=== PATIENT | female | born 1955 | race Caucasian/White ===

== ENCOUNTER → 2016-08-21 | Outpatient (CLI) | payer BC ==
[~2016-08-21] MED LIST: BREO1INH PO; CENTTAB47 PO; CINN500T PO; COUM2.5T11 PO; FLAX10002 PO; LEVA500T PO; LYRI75CA PO; PERC5TAB6 PO; TYLE325T5 PO; VITA100041 PO; tumeric
--- NOTE | 2016-08-21 09:49 | REPMRS ---
Patient History The patient states she had a clinical breast exam in 08/2016. Patient is postmenopausal and had first child at age 31. Family history of prostate cancer in father at age 50 or over. 2 benign cyst aspirations of the left breast, August 09, 2005. Benign core biopsy of the left breast, August 09, 2005. Digital Woman Screen Mammo: August 21, 2016 - Exam #: [id number] Bilateral CC and MLO view(s) were taken. Technologist: Trixie Cosby, Technologist Prior study comparison: October 10, 2014, digital woman screen mammo performed at [facility]. August 24, 2013, digital woman screen mammo performed at [facility]. FINDINGS: There are scattered fibroglandular densities. There has been no change in the appearance of the mammogram from the prior studies. There is a mild amount of residual fibroglandular tissue which is fairly symmetric. There is no interval development of dominant mass, architectural distortion, or clustered microcalcification suggestive of malignancy. ASSESSMENT: BI-RADS/ACR category 1 mammogram. Negative. Recommendation Routine screening mammogram in 1 year (for women over age 40). This mammogram was interpreted with the aid of an FDA-approved computer-aided dectection system. Electronically Signed By: Francois Morillo MD 08/21/16 0953
== END ==
LOC: M WHC 08:17
PROVIDERS: ATTEND Nurse Practitioner Family
DX: Z12.31 Encounter for screening mammogram for malignant neoplasm of breast (principal)

== ENCOUNTER → 2016-08-21 | Outpatient (REF) | payer BC | LOC: M SFHCWAGY 14:38 | PROVIDERS: ATTEND Nurse Practitioner Family | DX: Z12.4 Encounter for screening for malignant neoplasm of cervix (principal) ==

== ENCOUNTER 2017-03-14 07:15 | Day surgery (SDC) | payer BC ==
[2017-03-14] MEDS: NS 1,000 ML IV (07:45)
[2017-03-14] MEDS ORDERED: PROPOFOL 200 MG/20 ML VIAL As Ordered (08:49)
[2017-03-14] MEDS ORDERED: LIDOCAINE 2% INJ 100 MG/5 ML SDV (FOR ANES.) As Ordered (08:49)
== END 2017-03-14 09:29 | disposition home or self-care (01) ==
LOC: M OPP 07:15
DX: Z12.11 Encounter for screening for malignant neoplasm of colon (principal); D12.5 Benign neoplasm of sigmoid colon; K57.30 Diverticulosis of large intestine without perforation or abscess without bleeding; K64.8 Other hemorrhoids; M19.90 Unspecified osteoarthritis, unspecified site; M54.9 Dorsalgia, unspecified; J45.909 Unspecified asthma, uncomplicated; G47.30 Sleep apnea, unspecified; R06.83 Snoring; Z78.0 Asymptomatic menopausal state; Z96.643 Presence of artificial hip joint, bilateral; Z79.899 Other long term (current) drug therapy
CPT/HCPCS: 45385

== ENCOUNTER → 2017-06-17 | Outpatient (REF) | payer BC ==
[2017-06-17 12:40] LABS: AMYLASE 18 U/L (25-115)
[2017-06-17 12:40] LABS: LIPASE 104 U/L (73-393)
== END ==
LOC: M LAB REF 11:59
DX: R14.0 Abdominal distension (gaseous) (principal)
CPT/HCPCS: 82150

== ENCOUNTER → 2018-01-06 | Outpatient (CLI) | payer BC | LOC: M WHC 08:48 | DX: Z12.31 Encounter for screening mammogram for malignant neoplasm of breast (principal); Z78.0 Asymptomatic menopausal state; Z92.89 Personal history of other medical treatment | CPT/HCPCS: 77067 ==

== ENCOUNTER → 2018-10-06 | Outpatient (CLI) | payer BC ==
[~2018-10-06] MED LIST changes: +ASPI-524 PO; +CINN500C2 PO; -COUM2.5T11 PO; +COUM2.5T17 PO; +D 101000 PO; +LEVA1TAB2 PO; -LEVA500T PO; +MULTCAP PO; +PERC5TAB12 PO; -PERC5TAB6 PO; +VITA-182 PO; -VITA100041 PO
[2018-10-06 09:18] LABS: HEMATOCRIT 41.3 % (36.0-47.0); HEMOGLOBIN 13.9 g/dl (12.0-15.5); MEAN CORPUSCULAR HEMOGLOBIN 32.8 pg (27.0-33.0); MEAN CORPUSCULAR HGB CONC 33.7 g/dl (32.0-36.5); MEAN CORPUSCULAR VOLUME 97.4 fl (80.0-96.0); PLATELET COUNT, AUTOMATED 182 10^3/uL (150-450); RED BLOOD COUNT 4.24 10^6/uL (4.00-5.40); WHITE BLOOD COUNT 8.2 10^3/uL (4.0-10.0)
[2018-10-06 09:27] LABS: INR 1.12; PROTHROMBIN TIME 14.1 SECONDS (11.8-14.0)
[2018-10-06 09:41] LABS: ALBUMIN 3.4 GM/DL (3.2-5.2); ALT/SGPT 25 U/L (12-78); BILIRUBIN,TOTAL 1.2 MG/DL (0.2-1.0); BLOOD UREA NITROGEN 11 MG/DL (7-18); CALCIUM LEVEL 8.5 MG/DL (8.8-10.2); CARBON DIOXIDE LEVEL 28 MEQ/L (21-32); CHLORIDE LEVEL 103 MEQ/L (98-107); CREATININE FOR GFR 0.82 MG/DL (0.55-1.30); GLOMERULAR FILTRATION RATE > 60.0 (>45); GLUCOSE, FASTING 110 MG/DL (70-100); POTASSIUM SERUM 4.4 MEQ/L (3.5-5.1); SODIUM LEVEL 137 MEQ/L (136-145); TOTAL PROTEIN 6.2 GM/DL (6.4-8.2)
[2018-10-06 09:45] LABS: ERYTHROCYTE SEDIMENTATION RATE 2 mm/hr (0-30)
--- NOTE | 2018-10-07 03:03 | REP ---
Clinical: Preoperative assessment . Comparison: 02/07/2015 . Technique: PA and lateral. Findings: The mediastinum and cardiac silhouette are stable. Cardiac silhouette is upper limits of normal in size. The lung pineda are clear and without acute consolidation, effusion, or pneumothorax. The skeletal structures are intact and normal. Impression: 1. Mild cardiomegaly cannot be excluded. 2. No acute pleuroparenchymal process. Electronically Signed by Trevor Gavin MD 10/07/2018 02:55 A
--- NOTE | 2018-10-07 07:41 | ECGEPIP ---
[facility] Test Date: 2018-10-06 Pat Name: PAYAM TIJERINA Department: Room: - Gender: Female Director Learning Services: ELMER : 1955 Requested By: Darwin Harris Order Number: [id number] Reading MD: Ramu Alvarez Measurements Intervals [place] Rate: 114 P: 64 UT: 166 QRS: -20 QRSD: 92 T: 88 QT: 341 QTc: 471 Interpretive Statements Sinus tachycardia Leftward axis Some delay in anterior R-wave progression Minor T-wave abnormalities Compared to prior tracing of 01/20/2015, heart rate is faster Electronically Signed on 10-07-2018 7:41:04 EDT by Ramu Alvarez
== END ==
LOC: M RAD 08:27
PROVIDERS: ATTEND Orthopaedic Surgery
DX: M17.11 Unilateral primary osteoarthritis, right knee (principal)

== ENCOUNTER 2018-10-21 10:22 | Inpatient (IN) | payer BC ==
--- NOTE | 2018-10-20 10:14 | HPE ---
DATE OF ANTICIPATED ADMISSION: 10/21/2018 ATTENDING PHYSICIAN: Dr. Darwin Harris CHIEF COMPLAINT: Right knee pain and stiffness. HISTORY: This is a pleasant, 63-year-old female patient with worsening right knee pain and stiffness that has failed to improve with conservative management. She has continued pain with weightbearing activities that affect her activities of daily living and has elected for surgery for her continued symptoms. She has been consented for a right total knee arthroplasty by Dr. Harris. ALLERGIES: NO KNOWN DRUG ALLERGIES. CURRENT MEDICATIONS: - Breo - Proventil p.r.n. PAST MEDICAL HISTORY: Chronic obstructive pulmonary disease (COPD). PAST SURGICAL HISTORY: Noncontributory. SOCIAL HISTORY: The patient is a former smoker and occasionally uses alcohol. FAMILY HISTORY: Father arthritis, cancer. Mother cancer. REVIEW OF SYSTEMS: Denies fever, chills, chest pain. Does report chronic shortness of breath. Denies any recent upper respiratory or urinary tract infection symptoms. Reports pain and stiffness in the right knee with weightbearing activities. PHYSICAL EXAMINATION: Height 68 inches. Weight 218 pounds. Temperature 98.7. Blood pressure 143/65. Respirations 13. Pulse 54. She is normocephalic, atraumatic. Neck is supple and nontender with no lymphadenopathy or jugular venous distention (JVD). S1 and S2 auscultated with no murmurs, rubs, or gallops. Lungs: Clear to auscultation bilaterally with no wheezes, rales, rhonchi. Abdomen: Soft, nontender. The right knee shows overlying skin intact with no rashes, erythema, ecchymosis, or warmth. She has intact range of motion and the right lower extremity is well perfused. EKG RESULTS: Sinus tachycardia, leftward axis, some delay in anterior R wave progression, minor T wave abnormalities. CHEST X-RAY: Mild cardiomegaly cannot be excluded. No acute pleural parenchymal process. LABS: White count 8.2. Red count 4.24. Hemoglobin 13.9. Hematocrit 41.3. ESR 2. BUN 11. Creatinine 0.82. PT 14.1. INR 1.12. PREOPERATIVE MEDICAL OPTIMIZATION: By Dr. Swanson that is not present for review today. IMPRESSION: Symptomatic right knee osteoarthritis. PLAN: Consented for right total knee arthroplasty with Dr. Darwin Harris.
[~2018-10-21] VITALS: Ht 170.2 cm; Wt 101.5 kg
[~2018-10-21 10:22] MED LIST changes: +LIDOCAINE 1% MDV 20ML VIAL SQ PRN; +LR 1,000 ML IV ONE
[2018-10-21] MEDS ORDERED: PROPOFOL 200 MG/20 ML VIAL As Ordered ONE ×2 (12:54→14:37)
[2018-10-21] MEDS ORDERED: LIDOCAINE 2% INJ 100 MG/5 ML SDV (FOR ANES.) As Ordered ONE (12:54)
[2018-10-21] MEDS ORDERED: fentaNYL 100 MCG/2 ML INJECTION (J3010) As Ordered ONE ×2 (12:55→13:13)
[2018-10-21] MEDS ORDERED: MIDAZOLAM INJ 2 MG/2 ML VIAL (J2250) As Ordered ONE ×3 (12:55→14:51)
--- NOTE | 2018-10-21 13:28 | IPN ---
DATE: 10/21/2018 The patient seen and examined. She wishes to have a right total knee arthroplasty. She understands the nature of this, the risks of bleeding, infection, damage to nerves, vessels, persistent pain, wear loosening, blood clots, medical problems, , among others. Preop clearance was obtained. Plan on doing a right knee arthroplasty.
[2018-10-21] MEDS ORDERED: BUPIVACAINE/DEXTROSE 0.75% 2 ML AMP As Ordered ONE (13:32)
[2018-10-21] MEDS ORDERED: TRANEXAMIC ACID 100 MG/ML 10ML VIAL As Ordered ONE (13:38)
[2018-10-21] MEDS ORDERED: ceFAZolin 1GM INJ (J0690 PER 500MG) As Ordered ONE (13:39)
[2018-10-21] MEDS ORDERED: EPINEPHrine INJ 1 MG/ML 1ML AMP As Ordered ONE (13:39)
[2018-10-21] MEDS ORDERED: BUPIVACAINE LIPOSOME/PF 1.3% 20ML VIAL (13.3MG/ML)(EXPAREL)(C9290 PER1MG) As Ordered ONE (13:39)
[2018-10-21] MEDS ORDERED: MIDAZOLAM INJ 2 MG/2 ML VIAL (J2250) IV ONE (14:00)
[2018-10-21] MEDS ORDERED: fentaNYL 100 MCG/2 ML INJECTION (J3010) IV ONE (14:00)
[2018-10-21] MEDS ORDERED: dexameTHASONE 10 MG/1 ML VIAL PRES.FREE (J1100) ONE (14:39)
[2018-10-21] MEDS ORDERED: ROPIvacaine 0.5% 30 ML INJECTION (J2795 PER 1MG) ONE (14:41)
[2018-10-21] MEDS ORDERED: ONDANSETRON 4MG/2ML VIAL (J2405) As Ordered ONE (15:00)
[2018-10-21] MEDS ORDERED: KETOROLAC 60 MG/2 ML VIAL (J1885) As Ordered ONE (15:00)
[2018-10-21] MEDS ORDERED: ACETAMINOPHEN TAB 650MG DOSE (2X325MG) PO PRN (16:00)
[2018-10-21] MEDS ORDERED: ONDANSETRON 4MG/2ML VIAL (J2405) IV PRN ×2 (16:00)
[2018-10-21] MEDS ORDERED: MORPHINE 4 MG/ML 1ML VIAL/SYRINGE (J2270) IV PRN (16:00)
[2018-10-21] MEDS ORDERED: FLEET ENEMA PR PRN (16:00)
[2018-10-21] MEDS ORDERED: oxyCODONE 5MG TAB PO PRN (16:00)
[2018-10-21] MEDS ORDERED: fentaNYL 100 MCG/2 ML INJECTION (J3010) IV PRN (16:00)
[2018-10-21] MEDS: LR 1,000 ML IV SCH (16:00)
[2018-10-21] MEDS ORDERED: LR 1,000 ML IV SCH (16:00)
[2018-10-21] MEDS ORDERED: ALBUTEROL 90 MCG/ACT 8GM HFA INHALER INH PRN (16:15)
[2018-10-21 16:44] VITALS: BP 119/84
[2018-10-21 17:20] VITALS: BP 136/95
[2018-10-21] MEDS: NORCO, ANEXSIA 5/325MG TABLET (HYDROcodone/ACETAMINOPHEN) PO PRN ×2 (17:29→21:59)
--- NOTE | 2018-10-21 18:04 | CR ---
DATE OF CONSULTATION: 10/21/2018 PRIMARY CARE PROVIDER: Dr. Ciro Swanson CONSULTANTS: Hospitalist group. HISTORY: The patient was seen status post right total knee arthroplasty. She had a preoperative evaluation done by primary care provider, Dr. Swanson's office. PAST MEDICAL HISTORY: Significant for: 1. Prediabetes. 2. Obstructive sleep apnea. 3. Hyperlipidemia. 4. Carpal tunnel syndrome. MEDICATIONS: - Breo Ellipta 100/25 - albuterol as needed - Lomotil as needed SURGICAL HISTORY: Left hip replaced 05/2015. Hernia repair in 2002 and revised in 01/2015. Bilateral cataract extraction 07/2018. Carpal tunnel surgery, bunionectomy, two sections. REVIEW OF SYSTEMS: No chest pain, cough, wheeze, hemoptysis, epistaxis, urinary bleeding. SOCIAL HISTORY: She and her run [employer]. She quit smoking in 2015. Moderate alcohol intake. PHYSICAL EXAMINATION: VITAL SIGNS: Per flow sheet. She is alert, conversant and in no distress. Lungs clear. Heart regular rhythm. Abdomen soft and nontender. No peripheral edema. Neurologic examination nonfocal. IMPRESSION: History of mild bronchospastic disease. PLAN: Continue her inhaler on an as needed basis. Hospitalist group will be available if medical needs arise.
[2018-10-21 18:21] VITALS: BP 133/86
--- NOTE | 2018-10-21 18:49 | REP ---
HISTORY: Status post TKR. The femoral and tibial components of the total knee prosthetic device are well seated and well approximated. The alignment is near anatomical. There is expected postoperative soft tissue swelling. There is an anterior skin staple line seen in the midline. IMPRESSION: Status post TKR. Electronically Signed by Isidro Coates DO 10/22/2018 10:53 A
[2018-10-21 19:27] VITALS: BP 125/75
[2018-10-21] MEDS: MORPHINE 4 MG/ML 1ML VIAL/SYRINGE (J2270) IV PRN (20:23)
[2018-10-21 21:05] VITALS: BP 124/76
[2018-10-21 22:00] VITALS: BP 124/76
[2018-10-22] MEDS: MORPHINE 4 MG/ML 1ML VIAL/SYRINGE (J2270) IV PRN (01:21)
[2018-10-22] MEDS: LR 1,000 ML IV SCH (03:46)
[2018-10-22] MEDS: NORCO, ANEXSIA 5/325MG TABLET (HYDROcodone/ACETAMINOPHEN) PO PRN ×2 (05:03→09:16)
[2018-10-22 06:00] VITALS: BP 130/83
[2018-10-22 06:21] VITALS: BP 130/83
[2018-10-22] MEDS ORDERED: PERC5TAB12 PO (06:48)
[2018-10-22] MEDS ORDERED: XARE10TA PO (06:48)
[2018-10-22 06:58] LABS: HEMATOCRIT 39.5 % (36.0-47.0); HEMOGLOBIN 12.8 g/dl (12.0-15.5); MEAN CORPUSCULAR HEMOGLOBIN 33.3 pg (27.0-33.0); MEAN CORPUSCULAR HGB CONC 32.4 g/dl (32.0-36.5); MEAN CORPUSCULAR VOLUME 102.9 fl (80.0-96.0); PLATELET COUNT, AUTOMATED 187 10^3/uL (150-450); RED BLOOD COUNT 3.84 10^6/uL (4.00-5.40); WHITE BLOOD COUNT 9.6 10^3/uL (4.0-10.0)
[2018-10-22] MEDS: MOM 30ML SUSPENSION UDC PO SCH (08:47)
[2018-10-22] MEDS: MIRALAX *UNIT DOSE* 17GM PACKET PO SCH (08:47)
[2018-10-22] MEDS: SENOKOT S TAB PO SCH ×2 (08:48→21:10)
[2018-10-22] MEDS: PERCOCET 5MG/325MG TAB PO PRN ×4 (10:18→23:15)
[2018-10-22] MEDS: BREO ELLIPTA INH SCH (12:36)
--- NOTE | 2018-10-22 13:27 | IPNPDOC ---
Subjective Date Seen The patient was seen on 10/22/18. Subjective Chief Complaint/HPI The patient is status post right total knee arthroplasty.Saying that she had PT early had pain but now improved after po pain meds were given. Objective Physical Examination General Exam: Positive: Alert, No Acute Distress Eye Exam: Positive: PERRLA, Conjunctiva & lids normal, EOMI; Negative: Sclera icteric ENT Exam: Positive: Atraumatic, Mucous membr. moist/pink, Pharynx Normal Chest Exam: Positive: Clear to auscultation, Normal air movement Heart Exam: Positive: Rate Normal, Regular Rhythm, Normal S1, Normal S2; Negative: Murmurs, Rubs Abdomen Exam: Positive: Normal bowel sounds, Soft; Negative: Tenderness, Hepatospenomegaly Extremity Exam: Positive: Other (S/p right knee surgery) Neuro Exam: Positive: Normal Gait, Normal Speech, Cranial Nerves 3-12 NL, Reflexes 2+ Psych Exam: Positive: Mental status NL, Mood NL, Oriented x 3 Assessment /Plan Problems (1) Osteoarthritis of right knee Status: Chronic Problem Text: S/p surgery.Post-op orders,including pain management,PT/OT,dvt prophylaxis as per ortho (2) JASON (obstructive sleep apnea) Problem Text: Stable,continue current care (3) Bronchospastic airway disease Problem Text: Stable,continue inhaler prn Plan/VTE VTE Prophylaxis Ordered?: Yes (as per ortho) Disposition Disposition as per ortho;patient is clinically stable VS, I&O, 24H, Fishbone Vital Signs/I&O Vital Signs Date Time Temp Pulse Resp B/P (MAP) Pulse Ox O2 Delivery O2 Flow Rate FiO2 10/22/18 10:48 18 10/22/18 06:00 98.2 102 130/83 (99) 97 10/21/18 15:49 2 I&O- Last 24 Hours up to 6 AM 10/22/18 06:00 Intake Total 2300 ml Output Total 50 ml Balance 2250 ml Laboratory Data 24H LABS Laboratory Tests 2 10/22/18 06:36: Nucleated Red Blood Cells % (auto) 0.0 CBC/BMP Laboratory Tests 10/22/18 06:36 Red Blood Count 3.84 L, Mean Corpuscular Volume 102.9 H, Mean Corpuscular Hemoglobin 33.3 H, Mean Corpuscular Hemoglobin Concent 32.4, Red Cell Distribution Width 14.0 LESLIE OLIVO MD Oct 22, 2018 13:27
[2018-10-22] MEDS ORDERED: RIVAROXABAN 10 MG TAB (XARELTO) PO SCH (18:00)
[2018-10-22 20:24] VITALS: BP 142/92
--- NOTE | 2018-10-22 23:17 | RO ---
DATE OF PROCEDURE: 10/21/2018 PREOPERATIVE DIAGNOSIS: Right knee osteoarthritis. POSTOPERATIVE DIAGNOSIS: Right knee osteoarthritis. PROCEDURE: Right total knee arthroplasty using an Attune rotating platform posterior stabilized size 5 femur, size 5 tibial tray, 10 polyethylene and a 35 patellar button. SURGEON: Dr. Darwin Harris PARTY COORDINATOR: NAVEED Lyman ANESTHESIA: Spinal. ESTIMATED BLOOD LOSS: Less than 50 mL. COMPLICATIONS: None. INDICATIONS: A 63-year-old woman who has had gradually worsening knee pain and wished to go ahead with a knee replacement. She had advanced arthritis. Preop clearance was obtained. DESCRIPTION OF PROCEDURE: The patient was taken to the operating room, placed in the supine position after spinal anesthesia was induced. The right lower extremity was prepped and draped in the usual sterile fashion. A tourniquet was inflated after a time-out was performed. I then created a longitudinal incision over the anterior aspect of the knee. Sharp dissection was carried down through subcutaneous tissue. Performed a medial parapatellar arthrotomy per routine. Everted the patella. Did have to do a little bit of lateral release at this point. I used the canal initiating reamer followed by the intramedullary guide set at 7 degrees of valgus and a 9 mm cut because she had a valgus knee. The distal femoral cut was made without difficulty, protecting soft tissues. I sized the femur to be a 5 and made the remaining cuts, protecting soft tissues. I then prepared the tibial surface, ended up taking about 8 mm off both sides because they were about symmetric, and the proximal tibia cut was made after the alignment guide was adjusted appropriately. I then removed the remnant of the posterior cruciate ligament (PCL), used the hospital unit clerk to remove soft tissue and osteophytes from either side of the knee, and then prepared the box cut with the box cutting guide. This was secured in place and then remaining cuts were made. The tibial surface was sized to be a 5. This was pinned in place, drilled, broached and then the trial components were inserted. I had used a spacer block and determined that a size 10 was appropriate in flexion and extension with excellent alignment and stability. The patella was then freehand cut, removing about 6-7 mm of bone. I sized to be a 35. The drill holes were placed, and I did have to perform more of a lateral release at this point, but the patella tracked quite nicely. I placed the drill holes in the end of the femur. The assistant front desk manager prepared the bone cement in the modern technique. I removed the trial components, irrigated it and dried the bony surfaces. I also injected Exparel into the deep tissues. Cemented on the tibial surface and the femoral component, placed the polyethylene, cemented on the patella, held it in place with clamp, removed all excess bone cement. I then irrigated, placed the TXA deep in the wound, repaired the deep layer with a combination of #1 Vicryl suture and running Stratafix suture, but also did a final irrigation prior to deep wound closure. Irrigated, closed the subcu with #2-0 Vicryl, the skin with tori. A sterile dressing was applied. Tourniquet had been deflated when the cement was hard. She was taken to the recovery room in stable condition. There were no known complications. The assistant front desk manager was instrumental in holding retractors and assisting in making one of bone cuts and assisting in mixing the bone cement and wound closure.
[2018-10-23 02:18] VITALS: BP 137/89
[2018-10-23] MEDS: PERCOCET 5MG/325MG TAB PO PRN ×2 (04:05→08:19)
[2018-10-23 06:21] VITALS: BP 135/84
[2018-10-23 07:23] LABS: HEMATOCRIT 36.4 % (36.0-47.0); HEMOGLOBIN 11.7 g/dl (12.0-15.5); MEAN CORPUSCULAR HEMOGLOBIN 32.6 pg (27.0-33.0); MEAN CORPUSCULAR HGB CONC 32.1 g/dl (32.0-36.5); MEAN CORPUSCULAR VOLUME 101.4 fl (80.0-96.0); PLATELET COUNT, AUTOMATED 179 10^3/uL (150-450); RED BLOOD COUNT 3.59 10^6/uL (4.00-5.40); WHITE BLOOD COUNT 8.6 10^3/uL (4.0-10.0)
[2018-10-23] MEDS: SENOKOT S TAB PO SCH (08:19)
[2018-10-23] MEDS: MOM 30ML SUSPENSION UDC PO SCH ×2 (08:19→08:47)
[2018-10-23] MEDS: MIRALAX *UNIT DOSE* 17GM PACKET PO SCH ×2 (08:19→08:47)
[2018-10-23] MEDS: BREO ELLIPTA INH SCH (08:20)
[2018-10-23] MEDS ORDERED: MORPHINE 15 MG SA TAB PO ONE (08:30)
== END 2018-10-23 10:35 | disposition home health service (06) | DRG 302 ==
LOC: M OR 10:22 → M MS5PR 16:30
PROVIDERS: ADMIT Orthopaedic Surgery; ATTEND Orthopaedic Surgery
PROC: 0SRC0J9 Replacement of Right Knee Joint with Synthetic Substitute, Cemented, Open Approach (ICD-10-PCS; principal; 2018-10-21 14:35)
DX: M17.11 Unilateral primary osteoarthritis, right knee (principal); J98.4 Other disorders of lung; J44.9 Chronic obstructive pulmonary disease, unspecified; R73.03 Prediabetes; E78.5 Hyperlipidemia, unspecified; G47.33 Obstructive sleep apnea (adult) (pediatric); Z87.891 Personal history of nicotine dependence; Z96.642 Presence of left artificial hip joint; Z98.41 Cataract extraction status, right eye; Z98.42 Cataract extraction status, left eye; Z79.899 Other long term (current) drug therapy

== ENCOUNTER → 2018-12-29 | Outpatient (CLI) | payer BC ==
[~2018-12-29] MED LIST changes: -ASPI-524 PO; +ASPI325T57 PO; -LIDOCAINE 1% MDV 20ML VIAL SQ PRN; -LR 1,000 ML IV ONE; +XARE10TA PO
[2018-12-29 14:01] LABS: BLOOD UREA NITROGEN 11 MG/DL (7-18); CALCIUM LEVEL 8.7 MG/DL (8.8-10.2); CARBON DIOXIDE LEVEL 28 MEQ/L (21-32); CHLORIDE LEVEL 110 MEQ/L (98-107); GLOMERULAR FILTRATION RATE > 60.0 (>45); GLUCOSE, FASTING 102 MG/DL (70-100); POTASSIUM SERUM 4.7 MEQ/L (3.5-5.1); SODIUM LEVEL 142 MEQ/L (136-145)
== END ==
LOC: M SMT 09:38
PROVIDERS: ATTEND Internal Medicine Pulmonary Disease
DX: R06.02 Shortness of breath (principal)

== ENCOUNTER → 2018-12-29 | Outpatient (CLI) | payer BC ==
[~2018-12-29] MED LIST changes: +ISOVUE-370 76% 100ML VIAL (Q9967) As Ordered ONE
--- NOTE | 2018-12-29 12:11 | REP ---
Clinical: Acute shortness of breath . Technique: Axial contrast enhanced images from the thoracic inlet to the upper abdomen using 100 ml Isovue 370 intravenous contrast material with multiplanar re-formations. Findings: Satisfactory enhancement of the pulmonary vasculature is achieved and no filling defects are identified to suggest pulmonary embolus. Further evaluation of the mediastinum demonstrates normal thoracic aorta without aneurysm or dissection. Cardiomegaly is appreciated without pericardial effusion. The bilateral lung pineda demonstrate very small right pleural effusion and minimal bibasilar atelectasis. No pneumothorax. Impression: No evidence for pulmonary embolus. Small right pleural effusion and minimal right basilar atelectasis. Cardiomegaly. Electronically Signed by Trevor Gavin MD 12/29/2018 12:02 P
== END ==
LOC: M RAD 11:29
PROVIDERS: ATTEND Internal Medicine Pulmonary Disease
DX: J90 Pleural effusion, not elsewhere classified (principal); J98.11 Atelectasis; I51.7 Cardiomegaly
CPT/HCPCS: 71275; Q9967

== ENCOUNTER → 2019-01-02 | Outpatient (CLI) | payer BC ==
[~2019-01-02] MED LIST changes: -ISOVUE-370 76% 100ML VIAL (Q9967) As Ordered ONE
--- NOTE | 2019-01-03 14:18 | ECHO ---
DATE OF PROCEDURE: 01/02/2019 DATE OF : 1955 AGE: 63 GENDER: Female HEIGHT: 67 inches WEIGHT: 206 pounds BODY SURFACE AREA: 2.05 m2 OUTPATIENT: REFERRING PHYSICIAN: Dr. Ciro Swanson INDICATION: Dyspnea. MEASUREMENTS: 2-D Measurements: RV: 4.3 cm LV: 6.1 cm Septum: 1.0 cm Posterior wall: 1.0 cm Aortic root: 3.4 cm LA: 4.7 cm LVEF: 20% Doppler Measurements: AV: 0.9 m/s LVOT: 0.74 m/s LVOT: 2.0 cm MV: E 87, A 45, EA ratio 2 Early mitral deceleration time: 114 ms E prime medial: 4.1 A prime medial: 4.2 E prime lateral: 7.8 Average E/E ratio: 14.6 PCWP: 20 mmHg PV: 0.6 m/s Pulmonary artery acceleration time: 69 ms RVSP: 53 mmHg IVC: 2.9 cm COMMENTS: Normal sinus rhythm without intraventricular conduction disturbance. M-mode and two-dimensional echocardiography was performed with pulsed, continuous wave, color flow and tissue Doppler studies. Moderately dilated left ventricle with akinesis of the anterior wall, slight dyskinesis of the septum and akinesis of the inferoseptal wall. The inferior wall and lateral echeverria move normally. The apex was also hypo to akinetic. Severe impairment of global resting systolic function. At least moderately dilated left atrium with grade 2 left ventricular diastolic dysfunction and elevated mean left atrial pressure. Mildly dilated right heart chambers with normal right ventricular free wall motion and Doppler evidence of at least moderate pulmonary hypertension. Moderately dilated inferior vena cava with absent respiratory collapse in keeping with an elevated central venous pressure/right heart failure. Slight aortic valvular sclerosis without stenosis but premature cusp closure in keeping with reduced forward stroke volume. Very mild aortic insufficiency. Slightly thickened mitral annulus with "low flow" appearance to leaflet excursion and no posterior systolic buckling, yet at least mild to moderate insufficiency. Normal appearing tricuspid valve with moderately severe insufficiency. No apparent intracardiac mass or pericardial effusion. Based on the patient's age and the above test findings, would recommend cardiac catheterization to assess her coronary anatomy. Antifailure measures should be initiated including the use of Entresto and depending on whether she can be revascularized, at least a prophylactic ICD implant.
== END ==
LOC: M CARPUL 08:56
PROVIDERS: ATTEND Internal Medicine
DX: I50.810 Right heart failure, unspecified (principal); I35.1 Nonrheumatic aortic (valve) insufficiency; I36.1 Nonrheumatic tricuspid (valve) insufficiency; I27.20 Pulmonary hypertension, unspecified

== ENCOUNTER → 2019-01-07 | Outpatient (CLI) | payer BC ==
--- NOTE | 2019-01-07 10:38 | REPMRS ---
Patient History The patient states she had a clinical breast exam in 01/2019. Family history of prostate cancer at age 50 or over in father. 2 benign cyst aspirations of the left breast, August 09, 2005. Benign core biopsy of the left breast, August 09, 2005. No Hormone Replacement Therapy Digital Woman Screen Mammo: January 07, 2019 - Exam #: [id number] Bilateral CC and MLO view(s) were taken. Technologist: Trixie Cosby, Technologist Prior study comparison: January 06, 2018, bilateral digital woman screen mammo performed at [facility]. August 21, 2016, digital woman screen mammo performed at [facility]. October 10, 2014, digital woman screen mammo performed at [email or web address]. FINDINGS: The breast tissue is heterogeneously dense. This may lower the sensitivity of mammography. There is a moderate amount of heterogeneously dense fibroglandular tissue which is fairly symmetric. There is no interval development of dominant mass, architectural distortion, or grouped microcalcification typical of malignancy. There has been no change in the appearance of the mammogram from the prior studies. 3-D tomosynthesis shows no additional findings. Assessment: BI-RADS/ACR category 1 mammogram. Negative Mammogram. Recommendation Routine screening mammogram of both breasts in 1 year (for women over age 40). This patient's Lifetime Breast Cancer RIsk is estimated at 7.0 %. This mammogram was interpreted with the aid of an FDA-approved computer-aided dectection system. Electronically Signed By: Lio Stein MD 01/07/19 1037
== END ==
LOC: M WHC 08:51
PROVIDERS: ATTEND Nurse Practitioner Family
DX: Z12.31 Encounter for screening mammogram for malignant neoplasm of breast (principal)

== ENCOUNTER → 2019-02-10 | Outpatient (REF) | payer BC ==
[2019-02-11 00:01] LABS: C REACTIVE PROTEIN QUANTITATIV 0.67 MG/DL (0.00-0.30); RHEUMATOID FACTOR QUANT < 10.0 IU/ML (<15.0)
== END ==
LOC: M LABDRAW1 15:32
PROVIDERS: ATTEND Physician Assistant
DX: M79.642 Pain in left hand (principal); M70.61 Trochanteric bursitis, right hip; M17.11 Unilateral primary osteoarthritis, right knee

== ENCOUNTER → 2020-01-11 | Outpatient (CLI) | payer BC ==
--- NOTE | 2020-01-11 09:59 | REPMRS ---
Patient History The patient states she had a clinical breast exam in 01/2020 Family history of prostate cancer at age 50 or over in father. 2 benign cyst aspirations of the left breast, August 09, 2005. Benign core biopsy of the left breast, August 09, 2005. No Hormone Replacement Therapy Digital Woman Screen Mammo: January 11, 2020 - Exam #: [id number] Bilateral CC and MLO view(s) were taken. Technologist: Verona Ortega, Technologist Prior study comparison: January 07, 2019, bilateral digital woman screen mammo performed at [facility]. January 06, 2018, bilateral digital woman screen mammo performed at [facility]. August 21, 2016, digital woman screen mammo performed at [facility]. FINDINGS: There are scattered fibroglandular densities. The Volpara volumetric breast density category is:B. There has been no change in the appearance of the mammogram from the prior studies. There is a mild amount of scattered fibroglandular density which is fairly symmetric. There is no interval development of dominant mass, architectural distortion, or grouped microcalcification suggestive of malignancy. 3-D tomosynthesis shows no additional findings. Assessment: BI-RADS/ACR category 1 mammogram. Negative Mammogram. Recommendation Routine screening mammogram of both breasts in 1 year (for women over age 40). This patient's Lifetime Breast Cancer Risk is estimated at 6.7 %. This mammogram was interpreted with the aid of an FDA-approved computer-aided dectection system. Electronically Signed By: Lio Stein MD 01/11/20 0959
== END ==
LOC: M WHC 08:17
PROVIDERS: ATTEND Nurse Practitioner Family
DX: Z12.31 Encounter for screening mammogram for malignant neoplasm of breast (principal)

== ENCOUNTER → 2020-01-11 | Outpatient (REF) | payer BC | LOC: M SFHCWAGY 13:01 | PROVIDERS: ATTEND Nurse Practitioner Family | DX: Z12.4 Encounter for screening for malignant neoplasm of cervix (principal) ==

== ENCOUNTER → 2020-04-10 | Outpatient (CLI) | payer SELFPAY | LOC: M LABSMTC 12:33 | PROVIDERS: ATTEND Pediatrics | DX: Z20.822 Contact with and (suspected) exposure to COVID-19 (principal) ==

== ENCOUNTER → 2020-05-31 | Outpatient (REF) | payer BC, MEDICARE ==
[2020-05-31 16:48] LABS: PERCENT SATURATION 10.2 % (13.2-45.0)
== END ==
LOC: M LAB REF 16:18
PROVIDERS: ATTEND Internal Medicine
DX: D64.9 Anemia, unspecified (principal)

== ENCOUNTER → 2020-09-04 | Outpatient (CLI) | payer BC, MEDICARE ==
[~2020-09-04] MED LIST changes: +ALBU8.5H INH; +BREO1INH INH; -BREO1INH PO; +ECOT81TA5 PO; +FURO40TA2 PO; +LISI20TA33 PO; +MUCI600T31 PO; +SPIR-10; +VITMTA PO
== END ==
LOC: M LABSMTC 10:48
PROVIDERS: ATTEND Anesthesiology
DX: Z01.812 Encounter for preprocedural laboratory examination (principal); Z11.52 Encounter for screening for COVID-19

== ENCOUNTER 2020-09-08 09:20 | Day surgery (SDC) | payer MEDICARE ==
[~2020-09-08] VITALS: Ht 170.2 cm; Wt 98.0 kg
[~2020-09-08 09:20] MED LIST changes: -ALBU8.5H INH; -BREO1INH INH; +BREO1INH PO; -MUCI600T31 PO; +NS 1,000 ML IV ONE
[2020-09-08] MEDS ORDERED: LIDOCAINE 2% 100MG/5ML SDV (FOR ANES.) As Ordered ONE (10:07)
[2020-09-08] MEDS ORDERED: propofoL 200 MG/20 ML VIAL As Ordered ONE ×2 (10:07→10:21)
--- NOTE | 2020-09-08 10:36 | ROOR ---
Patient Name: Dinorah Méndez Procedure Date: 09/08/2020 10:18 AM Date of : 1955 Age: 65 Room: [facility] Gender: Female Note Status: Finalized Procedure: Colonoscopy Indications: High risk colon cancer surveillance: Personal history of colonic polyps Providers: Vladislav Quinteros MD Referring MD: JACKI TOVAR JR, MD Requesting Provider: Medicines: Monitored Anesthesia Care Complications: No immediate complications. Procedure: Pre-Anesthesia Assessment: - The heart rate, respiratory rate, oxygen saturations, blood pressure, adequacy of pulmonary ventilation, and response to care were monitored throughout the procedure. The Colonoscope was introduced through the anus and advanced to the terminal ileum, with identification of the appendiceal orifice and IC valve. The colonoscopy was performed without difficulty. The patient tolerated the procedure well. The quality of the bowel preparation was good. Findings: The perianal and digital rectal examinations were normal. Two sessile polyps were found in the splenic flexure and ileocecal valve. The polyps were diminutive in size. These polyps were removed with a jumbo cold forceps. Resection and retrieval were complete. Multiple medium-mouthed diverticula were found in the left colon and right colon. Internal hemorrhoids were found during retroflexion. The hemorrhoids were medium-sized. The exam was otherwise without abnormality on direct and retroflexion views. Impression: - Two diminutive polyps at the splenic flexure and at the ileocecal valve, removed with a jumbo cold forceps. Resected and retrieved. - Diverticulosis in the left colon and in the right colon. - Internal hemorrhoids. - The examination was otherwise normal on direct and retroflexion views. Recommendation: - Repeat colonoscopy in 5 years for surveillance. Procedure Code(s): --- Professional --- 64664, Colonoscopy, flexible; with biopsy, single or multiple Diagnosis Code(s): --- Professional --- K64.8, Other hemorrhoids Z86.010, Personal history of colonic polyps K63.5, Polyp of colon K57.30, Diverticulosis of large intestine without perforation or abscess without bleeding CPT copyright 2019 [employer]. All rights reserved. The codes documented in this report are preliminary and upon analog device designer review may be revised to meet current compliance requirements. Vladislav Quinteros MD Vladislav Quinteros MD 09/08/2020 10:36:11 AM Electronically signed by Vladislav Quinteros MD Number of Addenda: 0 Note Initiated On: 09/08/2020 10:18 AM Estimated Blood Loss: Estimated blood loss: none.
[2020-09-08 10:55] VITALS: BP 126/66
== END 2020-09-08 11:00 | disposition home or self-care (01) ==
LOC: M OPP 09:20
PROVIDERS: ATTEND Internal Medicine Gastroenterology
DX: Z12.11 Encounter for screening for malignant neoplasm of colon (principal); Z86.010 Personal history of colon polyps; D12.0 Benign neoplasm of cecum; D12.3 Benign neoplasm of transverse colon; K57.30 Diverticulosis of large intestine without perforation or abscess without bleeding; K64.8 Other hemorrhoids; Z79.82 Long term (current) use of aspirin; Z79.899 Other long term (current) drug therapy

== ENCOUNTER 2020-09-19 06:48 | Inpatient (IN) | payer MEDICARE ==
[~2020-09-19] VITALS: Ht 157.5 cm; Wt 98.4 kg
[~2020-09-19 06:48] MED LIST changes: +BREO1INH INH; -BREO1INH PO; -NS 1,000 ML IV ONE
[2020-09-19] MEDS: IPRATROPIUM 0.5MG/ALBUTEROL 2.5MG INH SOL UD 3ML (DUONEB) NEB PRN ×3 (07:02→08:43)
[2020-09-19] MEDS ORDERED: ONDANSETRON 4MG/2ML VIAL IV ONE (07:30)
[2020-09-19 07:36] LABS: BASO # 0.1 10^3/uL (0.0-0.2); BASO % 0.8 % (0.0-1.0); EOS # 0.1 10^3/uL (0.0-0.5); EOS % 1.8 % (0.0-3.0); HEMATOCRIT 41.9 % (36.0-47.0); HEMOGLOBIN 13.5 g/dl (12.0-15.5); LYMPH # 3.4 10^3/uL (1.5-5.0); LYMPH % 43.1 % (24.0-44.0); MEAN CORPUSCULAR HEMOGLOBIN 34.2 pg (27.0-33.0); MEAN CORPUSCULAR HGB CONC 32.2 g/dl (32.0-36.5); MEAN CORPUSCULAR VOLUME 106.1 fl (80.0-96.0); MONO # 0.7 10^3/uL (0.0-0.8); MONO % 8.5 % (2.0-8.0); NEUTROPHILS # 3.6 10^3/uL (1.5-8.5); NEUTROPHILS % 45.4 % (36.0-66.0); PLATELET COUNT, AUTOMATED 237 10^3/uL (150-450); RED BLOOD COUNT 3.95 10^6/uL (4.00-5.40); WHITE BLOOD COUNT 7.9 10^3/uL (4.0-10.0)
[2020-09-19] MEDS ORDERED: FUROSEMIDE 40MG/4ML VIAL (J1940) IV ONE (07:45)
[2020-09-19 07:59] LABS: ALBUMIN 4.2 GM/DL (3.2-5.2); ALT/SGPT 24 U/L (12-78); BILIRUBIN,DIRECT < 0.1 MG/DL (0.0-0.2); BILIRUBIN,TOTAL 0.3 MG/DL (0.2-1.0); BLOOD UREA NITROGEN 53 MG/DL (7-18); CALCIUM LEVEL 9.2 MG/DL (8.8-10.2); CARBON DIOXIDE LEVEL 23 MEQ/L (21-32); CHLORIDE LEVEL 100 MEQ/L (98-107); CK-MB VALUE MASS 3.7 NG/ML (<3.6); CPK CREATINE PHOSPHOKINASE 214 U/L (26-192); CREATININE FOR GFR 2.38 MG/DL (0.55-1.30); GLOMERULAR FILTRATION RATE 21.7 (>45); GLUCOSE, FASTING 163 MG/DL (70-100); MB/CK RELATIVE INDEX 1.73 (< OR =4); NT-PRO BNP 797 PG/ML (<125); POTASSIUM SERUM 4.2 MEQ/L (3.5-5.1); SODIUM LEVEL 136 MEQ/L (136-145); TOTAL PROTEIN 8.6 GM/DL (6.4-8.2); TROPONIN I < 0.02 NG/ML (< 0.10)
--- NOTE | 2020-09-19 08:06 | REP ---
INDICATION: DYSPNEA/COUGH. COMPARISON: Comparison radiographs are from October 06, 2018. TECHNIQUE: Portable upright AP chest radiograph. FINDINGS: Cardiomegaly is observed unchanged. There is increased density in the left base consistent with fibrosis. This is essentially unchanged from the 2019 study. Pulmonary vasculature is cephalized. No infiltrate is seen. The lungs are exposed at a somewhat lesser level of inspiration. EKG monitoring electrodes are seen.. No acute bony abnormality is seen. IMPRESSION: Cardiomegaly. Linear fibrosis left base. Pulmonary vascular congestion. Otherwise negative.. <Electronically signed by Lio Stein > 09/19/20 0873
[2020-09-19] MEDS ORDERED: CEFEPIME HCL 2 GM in D5W MINI-BAG PLUS 50 ML IV ONE (08:45)
[2020-09-19] MEDS ORDERED: NS IV ONE (08:45)
--- NOTE | 2020-09-19 09:39 | REP ---
INDICATION: Resp failure, upper airway obstruction. COMPARISON: CTA 12/29/2018, AP portable 09/19/2020. TECHNIQUE: Noncontrast scanning with coronal and sagittal reconstructions provided. FINDINGS: Lungs are hyperinflated. Patchy interstitial infiltrates in the bilateral perihilar regions and scattered along the anterior margins of the major fissures on both sides. There are interstitial infiltrates and more dense consolidative opacities in both lower lung zones left greater than right. I do not see definite effusion. Underlying COPD and emphysematous changes present. No pleural thickening or apical scarring. In the mid axillary line on image 51 there is a 5 mm pleural based solid nodule on the left new since 2019. No parenchymal mass but small nodules could be obscured in the consolidation in posterior lower lung zones. Heart size appears smaller than on a CT in December 2018. No pericardial thickening or effusion. Left atrium is smaller, still mildly prominent. Left ventricle mildly prominent. There is no hiatal hernia. The aorta has atherosclerotic calcifications at the arch but no gross aneurysm. There is no pathologic sized mediastinal or hilar adenopathy. Pulmonary arteries are prominent centrally suggesting pulmonary artery hypertension, presumably on the basis of COPD. Vacuum phenomenon throughout the mid and lower thoracic disc spaces with some degenerative changes appearing grossly stable and no new findings or compression deformities. Sternum, manubrium, clavicles, scapulae, visualized humeral heads and ribs grossly unremarkable. That portion of liver, gallbladder, pancreas and upper pole left kidney seen were grossly intact. Adrenal on the right is unremarkable. On the left there is a solid-appearing 2.2 cm long oval nodule with the CT attenuation 34.1 HU which is unchanged from 12/29/2018 study. This abuts the upper pole of the left kidney anteriorly and is deep to the tail of the pancreas with a plane of separation from both. IMPRESSION: 1. Hazy interstitial infiltrates perihilar region bilaterally in a pattern suggestive of interstitial edema. There are also interstitial and alveolar infiltrates in both lower lung zones posteriorly and in the deep sulci, left greater than right. No gross effusion. Superimposed pneumonia suspected. Please correlate clinically. The heart size is smaller than on the 2019 study. 2. Calcifications aorta without gross aneurysm. No pathologic sized adenopathy. Some degenerative changes in the spine. All of this stable and without acute abnormality. 3. 2.1 cm solid adrenal nodule appearing to hang off the inferior aspect of the lateral limb and unchanged from [address] attenuation value 34, this is not a typical adrenal adenoma. When reviewing a 2005 CT a during dictation of the impression, this finding is stable, therefore benign and no further evaluation needed. <Electronically signed by Milad Hwang > 09/19/20 0928
--- NOTE | 2020-09-19 11:04 | REPVR ---
PROCEDURE INFORMATION: Exam: CT Neck Without Contrast Exam date and time: 09/19/2020 9:03 AM Age: 65 years old Clinical indication: Other: Resp failure, upper airway obstruction TECHNIQUE: Imaging protocol: Computed tomography images of the neck without contrast. Radiation optimization: All CT scans at this facility use at least one of these dose optimization techniques: automated exposure control; mA and/or kV adjustment per patient size (includes targeted exams where dose is matched to clinical indication); or iterative reconstruction. COMPARISON: CT ANGIO CHEST 12/29/2018 11:57 AM FINDINGS: Nasopharynx: Unremarkable. Oropharynx: Unremarkable. No significant tonsillar enlargement. Hypopharynx: Unremarkable. Larynx: Unremarkable. Normal epiglottis. Retropharyngeal space: Unremarkable. Submandibular/Parotid glands: Normal. Glands are normal in size. Thyroid: Normal. No enlarged or calcified nodules. Lymph nodes: Unremarkable. No lymphadenopathy. Trachea: There is a partially imaged right paratracheal diverticulum. Lungs: Unremarkable as visualized. Bones/joints: There is degenerative disc disease and spondylosis. No acute fracture. Soft tissues: Unremarkable. No significant soft tissue swelling. IMPRESSION: No acute abnormality. Electronically signed by: Nely Sandoval On 09/19/2020 11:04:12 AM
--- NOTE | 2020-09-19 11:10 | ED PDOC ---
Post-Departure Follow-Up ct chest faxed to dr winters for fu Isis Jade MD Sep 19, 2020 11:10
--- NOTE | 2020-09-19 12:19 | HPEPDOC ---
[facility] Medical History & Physical Date of Admission Sep 19, 2020 Date of Service: Sep 19, 2020 History and Physical CHIEF COMPLAINT: SOB HISTORY OF PRESENT ILLNESS: 65 year old female with PMH COPD, HLD, JASON on home CPAP, cardiomyopathy, Diverticulitis and COVID infection in April presented to the ED this morning with complaints of acute onset of dyspnea waking her up at 5AM. She reports no acute prodromal symptoms prior to this morning event including any fever, chills, SOB, chest pain yesterday. Both patient and her provided history at bedside although appear to be poor historian as almost all PMH are ascertain through other sources that patient/ confirms. Per ED report, patient was hypoxic to low 80s upon arrival with severe tracheal stridor concerning for croup. She was also noted to be hypotensive with BP 70/52 at its lowest point. Evidence of sepsis noted also with tachycardia and LA 2.4. She was given cefepime and IVF with some improvement in BP to high 90s sytolic, MAP in 70s. Initial ABG suggestive of hypercarbic respiratory acidosis with pH 7.26 but now improved to 7.38 and CO2 of 41 on CPAP. She is able to speak in complete sentences without any visible distress underneath her CPAP. She reports following with Dr. Joseph as outpatient for her COPD due to varying quantities of tobacco use in the past. Denies any significant physical symptoms at this time. PAST MEDICAL HISTORY: Refer to [facility] PAST SURGICAL HISTORY: b/l hip R. knee surgery SOCIAL HISTORY: Former smoker. 3-5 drinks weekly. Denies illicit drug use. FAMILY HISTORY: Father- arthritis, prostate cancer Mother- Alzheimer's dementia ALLERGIES: Please see below. REVIEW OF SYSTEMS: 10 point review of system negative except as stated in [facility] HOME MEDICATIONS: Please see below. PHYSICAL EXAMINATION: General: Alert, no visible distress underneath CPAP mask. Speak in complete short sentences. Eyes: Normal sclera, EOMI HENT: Atraumatic Cardiovascular: Normal rate, tachycardic. Pulmonary: Mild b/l basilar crackles. Moving air well. GI: Soft, nontender, nondistended Skin: Warm and dry Neuro: CN grossly intact. No focal deficits. Strengths equal b/l. Psych: oriented x 3 LABORATORY DATA: See below. IMAGING: CXR- Cardiomegaly. Linear fibrosis left base. Pulmonary vascular congestion. Otherwise negative.. Chest CT- 1. Hazy interstitial infiltrates perihilar region bilaterally in a pattern suggestive of interstitial edema. There are also interstitial and alveolar infiltrates in both lower lung zones posteriorly and in the deep sulci, left greater than right. No gross effusion. Superimposed pneumonia suspected. Please correlate clinically. The heart size is smaller than on the 2019 study. 2. Calcifications aorta without gross aneurysm. No pathologic sized adenopathy. Some degenerative changes in the spine. All of this stable and without acute abnormality. 3. 2.1 cm solid adrenal nodule appearing to hang off the inferior aspect of the lateral limb and unchanged from [address] attenuation value 34, this is not a typical adrenal adenoma. When reviewing a 2005 [address] a during dictation of the impression, this finding is stable, therefore benign and no further evaluation needed. Neck CT- No acute abnormality. MICROBIOLOGY: Please see below. ASSESSMENT AND PLAN: 1. Acute combine hypoxic and hypercarbic respiratory failure - Viral w/ possible superimposing Bacterial CAP. hx COVID-19 infection, may play a role in declining lung function. - Resp panel + parainfluenza. Obtain sputum culture. - s/p 1 dose of cefepime. Will continue, renally dose. - Currently saturating well on CPAP. Pulm consulted for assistance. - O2 support as needed. - In setting of underlying COPD, will start steroids therapy with quick taper unless indicated otherwise by pulmonology. 2. COPD - Steroids. Abx as noted above. - Nebs scheduled and PRN. 3. Cardiomyopathy - Reportedly was in severe CHF with EF 20-25% in the past. Had cardiac evaluation with most recent ECHO showing normal functions. - cautious regarding IVF resuscitation. 4. JASON - CPAP. 5. NICANOR on CKD - Cr in the past year has been 1.5-1.8 per outside documentations. - Cr 2.3 on arrival with GFR 21. - IVF resuscitation, likely 2/2 sepsis. Monitor. DVT ppx: HSQ and YULI Code status: Full code Vital Signs Vital Signs Date Time Temp Pulse Resp B/P (MAP) Pulse Ox O2 Delivery O2 Flow Rate FiO2 09/19/20 11:30 111 88/57 (67) 99 NIPPV (BIPAP/CPAP) 09/19/20 08:26 50 09/19/20 07:06 98.6 28 Laboratory Data Labs 24H Laboratory Tests 2 09/19/20 07:00: POC pH (Misc Panel) 7.264L, POC Base Excess (Misc Panel) 0.0, POC Saturated Percent O2 (Misc) 100H, POC pO2 (Misc Panel) 339.0H, POC pCO2 (Misc Panel) 60.2*H, POC HCO3 (Misc Panel) 27.3H, POC Total CO2 (Misc Panel) 29.0H 09/19/20 07:19: Immature Granulocyte % (Auto) 0.4, Neutrophils (%) (Auto) 45.4, Lymphocytes (%) (Auto) 43.1, Monocytes (%) (Auto) 8.5H, Eosinophils (%) (Auto) 1.8, Basophils (%) (Auto) 0.8, Neutrophils # (Auto) 3.6, Lymphocytes # (Auto) 3.4, Monocytes # (Auto) 0.7, Eosinophils # (Auto) 0.1, Basophils # (Auto) 0.1, Nucleated Red Blood Cells % (auto) 0.0, Anion Gap 13, Glomerular Filtration Rate 21.7L, Lactic Acid Level 2.4*H, Calcium Level 9.2, Total Bilirubin 0.3, Direct Bilirubin < 0 .1, Aspartate Amino Transf (AST/SGOT) 18, Alanine Aminotransferase (ALT/SGPT) 24, Alkaline Phosphatase 75, Total Creatine Kinase 214H, Creatine Kinase MB 3.7H, Creatine Kinase MB Relative Index 1.73, Troponin I < 0.02, VM-Drq-T-Type Natriuretic Peptide 797H, Total Protein 8.6H, Albumin 4.2, Albumin/Globulin Ratio 1.0L 09/19/20 07:57: POC pH (Misc Panel) 7.247*L, POC Base Excess (Misc Panel) -5.0L, POC Saturated Percent O2 (Misc) 85L, POC pO2 (Misc Panel) 59.0L, POC pCO2 (Misc Panel) 51.4H, POC HCO3 (Misc Panel) 22.4, POC Total CO2 (Misc Panel) 24.0 09/19/20 11:34: POC pH (Misc Panel) 7.381, POC Base Excess (Misc Panel) 0.0, POC Saturated Percent O2 (Misc) 97, POC pO2 (Misc Panel) 97.0, POC pCO2 (Misc Panel) 41.5, POC HCO3 (Misc Panel) 24.6, POC Total CO2 (Misc Panel) 26.0 CBC/BMP Laboratory Tests 09/19/20 07:19 Microbiology Microbiology 09/19/20 Respiratory Virus Panel (PCR) (MELLISA) - Final, Complete Parainfluenza 3 (Piv3) 09/19/20 Blood Culture, Received Pending 09/19/20 Blood Culture, Received Pending Home Medications Scheduled Fluticasone/Vilanterol (Breo Ellipta 100-25 Mcg INH) 1 Inh Inh, 1 PUFF INH DAILY Furosemide (Furosemide) 40 Mg Tablet, 40 MG PO DAILY Lisinopril (Lisinopril) 20 Mg Tablet, 20 MG PO DAILY Multivitamins (Thera M Plus Tablet) 1 Each Tablet, 1 TAB PO DAILY Allergies Coded Allergies: No Known Allergies (Verified , 08/31/20) A-FIB/CHADSVASC A-FIB History Current/History of A-Fib/PAF?: No CECELIA CAMARA MD Sep 19, 2020 12:19
[2020-09-19] MEDS ORDERED: IPRATROPIUM 0.5MG/ALBUTEROL 2.5MG INH SOL UD 3ML (DUONEB) NEB PRN (13:35)
[2020-09-19] MEDS: HEPARIN SOD (PORCINE) 5000UNITS/ML 1ML VIAL/SYRINGE SC SCH ×2 (14:00→21:16)
[2020-09-19] MEDS: IPRATROPIUM 0.5MG/ALBUTEROL 2.5MG INH SOL UD 3ML (DUONEB) NEB SCH ×2 (15:00→19:58)
[2020-09-19 16:53] LABS: CALCIUM LEVEL 8.9 MG/DL (8.8-10.2); CREATININE FOR GFR 2.26 MG/DL (0.55-1.30); POTASSIUM SERUM 5.5 MEQ/L (3.5-5.1); TROPONIN I 0.13 NG/ML (< 0.10)
[2020-09-19 17:30] VITALS: BP 108/69
[2020-09-19] MEDS: methylPREDNISolone 125MG 2ML VIAL IV SCH (18:27)
[2020-09-19 18:31] VITALS: BP 120/74
[2020-09-19] MEDS: ACETAMINOPHEN TAB 650MG DOSE (2X325MG) PO PRN (18:36)
[2020-09-20] VITALS: BP 97/58
[2020-09-20] MEDS: methylPREDNISolone 125MG 2ML VIAL IV SCH (03:16)
[2020-09-20] MEDS: IPRATROPIUM 0.5MG/ALBUTEROL 2.5MG INH SOL UD 3ML (DUONEB) NEB SCH ×4 (03:41→19:15)
[2020-09-20 04:00] VITALS: BP 98/64
--- NOTE | 2020-09-20 05:07 | ECGEPIP ---
[facility] - ED Test Date: 2020-09-19 Pat Name: PAYAM TIJERINA Department: Room: 01 Gender: Female Client Services Analyst: chantell : [id number] Requested By: WILLI Butcher Order Number: [id number] Reading MD: Scout Robledo Measurements Intervals Richey Rate: 138 P: 22 MN: 134 QRS: -6 QRSD: 86 T: 70 QT: 288 QTc: 436 Interpretive Statements Sinus tachycardia with premature atrial complexes POOR R WAVE PROGRESSION BASELINE ARTIFACT AFFECTS INTERPRETATION RATE CHANGE COMPARED TO 10/06/18 Electronically Signed on 09-20-2020 5:06:59 EDT by Scout Robledo
[2020-09-20 05:57] LABS: HEMATOCRIT 31.4 % (36.0-47.0); MEAN CORPUSCULAR HEMOGLOBIN 34.8 pg (27.0-33.0); MEAN CORPUSCULAR HGB CONC 33.8 g/dl (32.0-36.5); PLATELET COUNT, AUTOMATED 195 10^3/uL (150-450); RED BLOOD COUNT 3.05 10^6/uL (4.00-5.40); WHITE BLOOD COUNT 14.9 10^3/uL (4.0-10.0)
[2020-09-20 05:57] LABS: ABG BASE EXCESS 0.3 (-2.0-2.0); ABG HCO3 24.8 MEQ/L (22.0-26.0); ABG O2 SATURATION 90.2 % (95.0-99.0); ABG PARTIAL PRESSURE CO2 39.6 mmHg (35.0-45.0); ABG PARTIAL PRESSURE O2 56.7 mmHg (75.0-100.0); ABG STANDARD HCO3 24.6 MEQ/L (22.0-26.0); ABG pH (ARTERIAL) 7.415 UNITS (7.350-7.450)
[2020-09-20 06:09] LABS: HEMOGLOBIN 10.6 g/dl (12.0-15.5)
[2020-09-20] MEDS: HEPARIN SOD (PORCINE) 5000UNITS/ML 1ML VIAL/SYRINGE SC SCH ×3 (06:17→22:17)
[2020-09-20 06:30] LABS: CALCIUM LEVEL 8.8 MG/DL (8.8-10.2); CREATININE FOR GFR 1.88 MG/DL (0.55-1.30); GLOMERULAR FILTRATION RATE 28.5 (>45); POTASSIUM SERUM 5.6 MEQ/L (3.5-5.1)
[2020-09-20] MEDS ORDERED: FUROSEMIDE 100MG/10ML VIAL (J1940) IV ONE (07:50)
[2020-09-20] MEDS ORDERED: FUROSEMIDE 100MG/10ML VIAL (J1940) IV STA (07:51)
[2020-09-20 08:00] VITALS: BP 117/63
[2020-09-20] MEDS ORDERED: cefTRIAXone SOD 2 GM in D5W MINI-BAG PLUS 50 ML IV SCH (08:10)
[2020-09-20] MEDS ORDERED: CEFEPIME HCL 1 GM in D5W MINI-BAG PLUS 50 ML IV SCH (09:00)
[2020-09-20] MEDS: CEFEPIME HCL 2 GM in D5W MINI-BAG PLUS 50 ML IV SCH ×2 (09:55→20:48)
--- NOTE | 2020-09-20 10:00 | REP ---
INDICATION: SOB. COMPARISON: Comparison chest x-ray is from September 19, 2020. TECHNIQUE: Two views.. FINDINGS: Moderate cardiac enlargement is observed. Cardiothoracic ratio measures 51.0%. Pulmonary vasculature is somewhat cephalized and congested. No pleural effusion is seen. There is a hazy perihilar pattern bilaterally left greater than right which may reflect pulmonary edema. IMPRESSION: Cardiomegaly vascular congestion and hazy bilateral alveolar edema pattern left greater than right. Findings suggest CHF with pulmonary edema. No pleural effusion.. <Electronically signed by Lio Stein > 09/20/20 0956
[2020-09-20 12:00] VITALS: BP 103/65
--- NOTE | 2020-09-20 12:41 | CR ---
CONSULTATION DATE: 09/20/2020 HISTORY OF PRESENT ILLNESS: This is a 65-year-old female who presents to [facility] with the chief complaint of shortness of breath. She states that she woke up from sleep yesterday morning with a sudden onset of shortness of breath. The patient states that she has been using her combined ICS+LABA (Breo-Ellipta) more often and has also felt the need to use her rescue inhaler although she couldn't find it. She denies noticing any increased cough that is productive of any sputum. She also denies any increased intake in salty foods as well as denying noticing any increased lower extremity swelling. Upon arrival to the . she was in respiratory distress with an SpO2 in the low 80's. She also experienced some hypotension and reflex tachycardia. She was given a breathing treatment, but the patient did not feel relieved from the shortness of breath and a subsequent dose of Lasix IV 40 was given. However the patient states that she did not diurese until later that evening. She denies any recent travel history or sick contacts. PAST MEDICAL HISTORY: 1. Hypertension. 2. Chronic obstructive pulmonary disease. 3. Hyperlipidemia. 4. Obstructive sleep apnea on home CPAP machine. 5. Recent COVID infection in April. PAST SURGICAL HISTORY: 1. Bilateral hip surgery. 2. Right knee surgeries. FAMILY HISTORY: Mother with Alzheimer's dementia. Father with arthritis, prostate cancer. SOCIAL HISTORY: Former smoker who smoked about one to 1.5 packs per day over 20+ use. Alcohol use daily (3-5 drinks including wine and liquor). Does not own any pets. Works in sales ALLERGIES: No Known Drug Allergies. REVIEW OF SYSTEMS: Constitutional: She denies any fevers, shaking chills, unintentional weight loss or gain HEENT: She denies any headache, neck pain, decreased hearing, vision changes, hoarseness, sore throat, lumps and bumps in the neck region. Denies any epistaxis. Respiratory: She does report shortness of breath since yesterday morning. She denies any increased cough or increased sputum production, denies hemoptysis. Cardiac: She denies any chest pain, palpitations or lower extremity edema. Positive for paroxysmal nocturnal dyspnea and orthopnea. GI: She denies any rectal bleeding or constipation or diarrhea. Denies any loss of appetite. Musculoskeletal: She denies any joint pain, swelling or effusion, redness or erythema to her joints or any trauma. Neurological: She denies any seizures, numbness, tingling. Psych: She denies any suicidal ideation or thoughts of self harm. HOME MEDICATIONS: 1. Lasix 40 mg p.o. daily. 2. Breo Ellipta 3. Lisinopril 20 p.o. daily. 4. Multivitamins. PHYSICAL EXAMINATION: VITAL SIGNS: Temperature 99.9 temporal, pulse 108 NSR, respirations 17, blood pressure 117/63, saturating 94% on 2 liters nasal cannula. GENERAL APPEARANCE: The patient is awake, alert, oriented, appropriate mood and affect. Speech is clear, able to speak in full sentences without accessory muscle use or retractions. HEENT: Sclerae clear, anicteric. Pupils equal and reactive to light. Mucous membranes are moist. No lesions in the oral mucosa. The tongue is midline. Mallampati score of 3. NECK/LYMPH: Neck is supple. No tracheal deviations or masses. Cannot appreciate any bruits. No significant palpable lymphadenopathy appreciated. CARDIAC: Normal S1, S2, a mild holosystolic murmur was appreciated that radiates to the right sternal border. Elevated JVP but no significant peripheral edema. PULMONARY: Dependent crackles in bilateral lung bases but did not appreciate any wheezing, rhonchi or rales. There is no dullness to percussion. ABDOMEN: Soft, nontender, nondistended. No organomegaly or masses palpated. EXTREMITIES: There is no cyanosis, bruising or calf tenderness. No significant lower extremity edema. No evidence of joint enlargement, effusions, clubbing or fractures. NEUROLOGICAL/PSYCH: She does have appropriate mood and affect. No history of suicidal ideation or thoughts of self harm. LABORATORY DATA: White count 14.9, H&H 10.6/31.4, platelet count 195. Sodium 139, potassium 5.6, chloride 105, bicarbonate 27, BUN and creatinine 52/1.88. Fasting glucose 153, calcium 8.8. First set of troponins less than 0.02; second set 0.13. The one from this morning is 0.43. Blood gas: PH 7.42/39.6/56.7. MICROBIOLOGY: Blood cultures x2 did not show growth. Respiratory panel positive for parainfluenza virus. IMAGING: Chest x-ray from yesterday, 09/19/20 shows pulmonary vascular congestion, cardiomegaly and linear fibrosis at the left base. Chest CT from 09/19/20 shows hazy interstitial infiltrates in the perihilar regions bilaterally and pattern suggestive of interstitial edema. There are also interstitial and denser areas of consolidation, left greater than the right in bilateral lung bases, suspicious for superimposed pneumonia vs atelectasis Neck CT from 09/19/20 within normal limits Chest x-ray from today 09/20/20, shows cardiomegaly with pulmonary vascular congestion and hazy bilateral alveolar edema, left greater than the right, suggestive of congestive heart failure with pulmonary edema. No pleural effusions seen. ASSESSMENT AND PLAN: This is a 65-year-old female who presents with the chief complaint of shortness of breath since yesterday morning. She reports the shortness of breath was sudden onset that woke her from her sleep. She has been requiring more of her ICS+LABA combo as well as her rescue inhalers, but denies any increase in cough that is productive of any sputum. She also denies any increase in salty foods. In the E.R. she was hypoxic and given a Neb treatment as well as Lasix but did not report improvement in shortness of breath. She also experienced hypotension and tachycardia in which she was subsequently given IV fluids with some improvement in her blood pressure, and was admitted under the Hospitalist Service. Pulmonary Service was consulted for further management of her acute respiratory failure. 1. Acute hypoxemic and hypercarbic respiratory failure in the setting of positive influenza virus plus possible bacterial pneumonia the patient's last ECHO in 2018 did show significant reduction in her EF as well as grade 2 diastolic dysfunction and mild to moderate valvular dysfunction (including moderately severe tricuspid insufficiency) and and was recommended coronary catheterization as well as a prophylactic ICD and Anti-failure medication Entresto. She did undergo a coronary catheterization which did not show any blockage reportedly and was initially started on Entresto but patient stated that her PCP have discontinued it. The patient presents to the hospital with sudden onset of shortness of breath. Her CT yesterday did show linear septal thickening, suggestive of pulmonary vascular congestion. Her initial pro BNP was elevated and the repeat was significantly elevated. She did receive a dose of IV Lasix in the E.D. and another dose on the floor this morning. We will continue to monitor her in's and out's. Her blood pressure has been soft through this hospitalization and she may need additional inotropic agents, and may need a central line for administration of those agents. Also noted, she had elevated troponins, likely in the setting of ischemic demand from her acute exacerbation of heart failure. We will order for another ECHO to assess for progression of her valvular disease. In the meantime, we will continue to monitor her blood pressure closely. She can use her CPAP q. p.m. and during naps. Otherwise titrate nasal cannula to keep her sats between 88% and 92%. 2. CAP - The patient did have positive parainfluenza virus on her respiratory panel. Her CT yesterday shows areas of interstitial and alveolar infiltrates, predominately in the lower lung bases, left greater than the right. She has been afebrile and her initial white count was within normal limits, however overnight she did develop a fever of 101.4 and had an increased white count this morning which could be from the high dose of steroids which she received yesterday. I agree with the antibiotics (Cefepime). We will order for a procalcitonin level to differentiate between viral versus bacteria pneumonia. We will order for an MRSA PCR as well as another lactate level. 3. Longstanding history of smoking/nicotine dependence and a history of COPD - not suspected to be an acute exacerbation currently. The patient does use Breo Ellipta as well as a rescue inhaler at home. We will start her on Advair as well as Nebs, scheduled and as p.r.n. She did initially receive one dose of 80 IV Solu-Medrol yesterday. We will hold off on further steroids at this point as she is not wheezing. 4. JASON on CPAP. CPAP at night and during no apparent distress time. Otherwise titrate nasal cannula to keep her O2 sats between 88% and 92%. 5. Hyperkalemia - potassium level has been noted to increase/trending up. We will order for a repeat BMP for this afternoon and continue to closely monitor her electrolytes and replete as needed. DVT PROPHYLAXIS Heparin. CODE STATUS Full. Total critical care time spent not including any procedures approx 1 hr and 55 mins I, Norah Brunson, have conducted an independent examination and history of the patient and agree with the above plan as detailed by the resident and discussed during rounds. SUKHWINDER
[2020-09-20] MEDS: ADVAIR HFA 230/21MCG INHALER INH SCH ×2 (13:15→19:15)
[2020-09-20 13:51] LABS: CALCIUM LEVEL 9.3 MG/DL (8.8-10.2); CREATININE FOR GFR 1.94 MG/DL (0.55-1.30); GLOMERULAR FILTRATION RATE 27.5 (>45); POTASSIUM SERUM 4.9 MEQ/L (3.5-5.1)
[2020-09-20 16:00] VITALS: BP 110/63
--- NOTE | 2020-09-20 18:29 | IPNPDOC ---
Date Seen The patient was seen on 09/20/20. Progress Note SUBJECTIVE: Patient reported feeling better today. Off of CPAP. Offered no physical complaints including any SOB or discomfort. VS improved overnight to SBP>100 although [place] [address] with trop increased to 0.43. OBJECTIVE PHYSICAL EXAMINATION: VITAL SIGNS: Please see below. General: Alert, no acute distress. Eyes: Normal sclera, EOMI HENT: Atraumatic Cardiovascular: Normal rhythm, tachycardic. Pulmonary: Mild b/l basilar crackles. GI: Soft, nontender, nondistended Skin: Warm and dry Neuro: CN grossly intact. No focal deficits. Strengths equal b/l. Psych: oriented x 3 LABORATORY DATA, IMAGING STUDIES, MICROBIOLOGY: Please see below. LABORATORY DATA: See below. IMAGING: CXR- Cardiomegaly. Linear fibrosis left base. Pulmonary vascular congestion. Otherwise negative.. Chest CT- 1. Hazy interstitial infiltrates perihilar region bilaterally in a pattern suggestive of interstitial edema. There are also interstitial and alveolar infiltrates in both lower lung zones posteriorly and in the deep sulci, left greater than right. No gross effusion. Superimposed pneumonia suspected. Please correlate clinically. The heart size is smaller than on the 2019 study. 2. Calcifications aorta without gross aneurysm. No pathologic sized adenopathy. Some degenerative changes in the spine. All of this stable and without acute abnormality. 3. 2.1 cm solid adrenal nodule appearing to hang off the inferior aspect of the lateral limb and unchanged from [address] attenuation value 34, this is not a typical adrenal adenoma. When reviewing a 2005 CT a during dictation of the impression, this finding is stable, therefore benign and no further evaluation needed. Neck CT- No acute abnormality. MICROBIOLOGY: Please see below. ASSESSMENT AND PLAN: 1. Acute combine hypoxic and hypercarbic respiratory failure - Infectious vs Cardiac compromise. - Resp panel + parainfluenza. Given sepsis clinical picture on presentation, worry that she may have superimposing bacterial pneumonia. - c/w Abx. hx COVID-19 infection, may play a role in declining lung function. - Patient is off CPAP and saturating well on NC. - BNP 36723 with tachycardia and borderline hypotension. - Patient has history of cardiomyopathy with severely reduced EF but most recently reported normal in late 2019. Workup done in [place]. - hx heavy alcohol use. Alcohol induced cardiomyopathy high on differential. - Stat ECHO ordered. Cardiology consulted. 2. COPD - Nebs scheduled and PRN. 3. JASON - CPAP at night. 4. NICANOR on CKD - Cr in the past year has been 1.5-1.8 per outside documentations. - Cr 2.3 on arrival with GFR 21. Slightly worse today, may be due to hypoperfusion 2/2 cardiac compromise. - Will repeat BMP in AM to re-evaluate function. DVT ppx: HSQ and YULI Code status: Full code VS, I&O, 24H, Fishbone Vital Signs/I&O Vital Signs Date Time Temp Pulse Resp B/P (MAP) Pulse Ox O2 Delivery O2 Flow Rate FiO2 09/20/20 16:00 99.5 89 17 110/63 (79) 91 Room Air 09/20/20 12:00 2.0 09/19/20 08:26 50 I&O- Last 24 Hours up to 6 AM 09/20/20 06:00 Intake Total 1050 ml Balance 1050 ml Laboratory Data 24H LABS Laboratory Tests 2 09/20/20 05:26: Procalcitonin 0.33 09/20/20 05:29: Nucleated Red Blood Cells % (auto) 0.0, Anion Gap 7L, Glomerular Filtration Rate 28.5L, Calcium Level 8.8, Troponin I 0.43#H, ON-Icj-T-Type Natriuretic Peptide 16418M 09/20/20 05:45: Blood Gas Bicarbonate Standard 24.6, Arterial Blood pH 7.415, Arterial Blood Partial Pressure CO2 39.6, Arterial Blood Partial Pressure O2 56.7L, Arterial Blood Total CO2 26.0, Arterial Blood HCO3 24.8, Arterial Blood Base Excess 0.3, Arterial Blood Oxygen Saturation 90.2L 09/20/20 09:27: Lactic Acid Level 1.8 09/20/20 10:43: Lab Scanned Report Miscellaneous Lab 09/20/20 13:04: Anion Gap 7L, Glomerular Filtration Rate 27.5L, Calcium Level 9.3 09/20/20 14:10: Methicillin-Resist S.aureus DNA PCR NOT DETECTED CBC/BMP Laboratory Tests 09/20/20 05:29 09/20/20 13:04 Microbiology Microbiology 09/19/20 Respiratory Virus Panel (PCR) (MELLISA) - Final, Complete Parainfluenza 3 (Piv3) 09/19/20 Blood Culture - Preliminary, Resulted No growth after 24 hours . All specim... 09/19/20 Blood Culture - Preliminary, Resulted No growth after 24 hours . All specim... CECELIA CAMARA MD Sep 20, 2020 18:29
[2020-09-20 20:00] VITALS: BP 117/64
[2020-09-20] MEDS ORDERED: FUROSEMIDE 20MG/2ML VIAL (J1940) IV ONE (20:00)
[2020-09-20] MEDS: DIGOXIN INJ 0.5 MG/2 ML AMP (J1160) IV SCH (20:48)
[2020-09-21] VITALS (7 sets, daily range): BP systolic 104–135; BP diastolic 52–73
[2020-09-21] MEDS: ACETAMINOPHEN TAB 650MG DOSE (2X325MG) PO PRN (00:09)
[2020-09-21] MEDS: IPRATROPIUM 0.5MG/ALBUTEROL 2.5MG INH SOL UD 3ML (DUONEB) NEB SCH ×4 (02:04→19:19)
[2020-09-21] MEDS: DIGOXIN INJ 0.5 MG/2 ML AMP (J1160) IV SCH ×3 (02:57→14:33)
[2020-09-21 06:07] LABS: HEMATOCRIT 31.3 % (36.0-47.0); HEMOGLOBIN 9.9 g/dl (12.0-15.5); MEAN CORPUSCULAR HEMOGLOBIN 33.1 pg (27.0-33.0); MEAN CORPUSCULAR HGB CONC 31.6 g/dl (32.0-36.5); MEAN CORPUSCULAR VOLUME 104.7 fl (80.0-96.0); PLATELET COUNT, AUTOMATED 179 10^3/uL (150-450); RED BLOOD COUNT 2.99 10^6/uL (4.00-5.40); WHITE BLOOD COUNT 9.6 10^3/uL (4.0-10.0)
[2020-09-21] MEDS: HEPARIN SOD (PORCINE) 5000UNITS/ML 1ML VIAL/SYRINGE SC SCH ×3 (06:21→21:33)
[2020-09-21 06:33] LABS: CALCIUM LEVEL 8.8 MG/DL (8.8-10.2); CREATININE FOR GFR 1.65 MG/DL (0.55-1.30); GLOMERULAR FILTRATION RATE 33.1 (>45); POTASSIUM SERUM 4.7 MEQ/L (3.5-5.1)
[2020-09-21] MEDS ORDERED: FUROSEMIDE 20 MG TAB PO ONE (06:35)
[2020-09-21 07:08] LABS: MAGNESIUM LEVEL 2.6 MG/DL (1.8-2.4); PHOSPHORUS LEVEL 3.7 MG/DL (2.5-4.9)
[2020-09-21] MEDS: ADVAIR HFA 230/21MCG INHALER INH SCH ×2 (07:59→19:19)
[2020-09-21 08:13] LABS: ALBUMIN 3.3 GM/DL (3.2-5.2); BILIRUBIN,DIRECT 0.1 MG/DL (0.0-0.2); BILIRUBIN,TOTAL 0.4 MG/DL (0.2-1.0)
--- NOTE | 2020-09-21 08:58 | REP ---
INDICATION: sob. COMPARISON: AP lateral 09/20/2020, 09/19/2020; CT 09/19/2020 TECHNIQUE: Two views FINDINGS: There is some improvement in the cardiomegaly, vascular congestion and perihilar interstitial edema. I do not see pleural effusion. No parenchymal mass. Increased patchy density in right base above the diaphragm as before. Calcified aorta at the arch without aneurysm, stable. Airway intact. Bones without acute finding. IMPRESSION: 1. Improvement in cardiomegaly, vascular congestion and edema compared to yesterday's study. No gross effusion. Still some patchy atelectasis or infiltrate above the right diaphragm, this may be some residual alveolar edema or patchy pneumonitis. <Electronically signed by Milad Hwang > 09/21/20 1159
[2020-09-21] MEDS: guaiFENesin ER 600 MG TAB PO SCH ×2 (09:20→21:33)
[2020-09-21 11:28] LABS: FOLATE 7.9 NG/ML (>5.4); TROPONIN I 0.43 NG/ML (< 0.10)
--- NOTE | 2020-09-21 13:30 | IPN ---
PULMONARY PROGRESS NOTE DATE: 09/21/2020 SUBJECTIVE: The patient was seen at bedside this morning. She is not in any acute respiratory distress, satting at 92% on room air. Overnight, She was afebrile. She was able to bring her own CPAP machine from home and used it overnight without any issues, currently set at 11cm H2O. The patient does report having some chest congestion this morning. She states that whenever she cough, she does bring up some sparse mucus with sparse mixed blood. There is no gross hemoptysis. Otherwise denies any shortness of breath, chest pain, palpitations. REVIEW OF SYSTEMS: Constitutional: Denies any fever or shaking chills, weight changes. HEENT: Denies any headache, neck pain, decreased hearing, vision changes, hoarseness, sore throat, lumps and bumps in the neck region. Denies any epistaxis. She does have increased production of mucus with a little bit of blood this morning. Respiratory: Denies any shortness of breath overnight or this morning. She is having chest congestion and does shave more sputum production but denies any gross hemoptysis. Cardiac: Denies any chest pain, palpitations, lower extremity edema. Did not have any paroxysmal nocturnal dyspnea or orthopnea. GI: Denies any rectal bleeding, constipation, or diarrhea. Denies any loss of appetite. Musculoskeletal: Denies any joint pain, swelling, effusion, redness, or erythema to her joints or any trauma. Neurologic: Denies any seizures, numbness, or tingling. Psychiatric: Denies any suicidal ideation or thoughts of self-harm. OBJECTIVE: VITAL SIGNS: Temperature 99.6, heart rate 95, sinus rhythm, respirations 16, blood pressure 104/56, satting at 92% on room air. GENERAL APPEARANCE: The patient is awake, alert and oriented, appropriate mood and affect. Speech is clear. Able to speak in full sentences without accessory muscle use or retractions. HEENT: Sclerae are clear, anicteric. Pupils equal and reactive to light. Mucous membranes are moist, no lesions in the oral mucosa. Tongue is midline. Mallampati score of III. NECK/LYMPH: Neck is supple. No tracheal deviations or masses. Cannot appreciate any bruits. There is significant palpable lymphadenopathy appreciated. CARDIAC: Normal sinus rhythm. A holosystolic murmur is appreciated that radiates to the right sternal border. Elevated JVP appreciated but no significant peripheral edema. PULMONARY: Mild dependent crackles bilateral lung bases. Do not appreciate any wheezing, rhonchi, or rales, no dullness to percussion. ABDOMEN: Soft, nontender, nondistended. No organomegaly or masses palpated. EXTREMITIES: No signs of cyanosis, bruising, or calf tenderness, no significant lower extremity edema. No evidence of joint enlargement, effusions, clubbing, or fractures. NEUROLOGIC/PSYCH: She does have appropriate mood and affect. No thoughts of suicidal ideation or thoughts of self-harm. LABORATORY DATA: White count 9.6, hemoglobin and hematocrit 9.9/31.3, platelet count 179. Sodium 133, potassium 4.7, chloride 100, bicarbonate 29, BUN and creatinine 50/1.65, blood sugar 137. Magnesium 2.6, phosphorus 3.7, calcium 8.8. Input/Output: Input 1250 mL, output 2000 mL. Net negative 750 mL. Microbiology: Blood cultures times two negative. We will order for a sputum gram stain and culture, pending results. Respiratory panel positive for parainfluenza virus. IMAGING: His chest x-ray today does show improved pulmonary vascular congestion, mild cardiomegaly appreciated. ASSESSMENT AND PLAN: This is a 65-year-old female who presents with a chief complaint of shortness of breath since yesterday morning. She reports shortness of breath was sudden onset that woke her up from sleep. She has been requiring more of her Breo Ellipta as well as her rescue inhalers but denies any increase in salty food intake. In the ER, she was hypoxic, given neb treatment as well as Lasix but did not have improvement in shortness of breath. She also experienced hypotension and tachycardia for which she was subsequently given IV fluids with some improvement in her blood pressure and was admitted under the hospitalist service. The pulmonary service was consulted for further management of her acute respiratory failure. 1. Acute hypoxemic and hypercarbic respiratory failure in the setting of positive parainfluenza virus plus possible bacterial pneumonia. Last echo in 2019 did show significant reduction in her EF as well as a grade 2 diastolic dysfunction and mild to moderate valvular dysfunction (including moderately severe tricuspid insufficiency) and was recommended coronary catheterization as well as prophylactic ICD and anti-failure medication Entresto. She did undergo cardiac catheterization which did not show any blockage reportedly, and she was initially started on Entresto but the patient states that the PCP has since discontinued it. Initial CT did show linear septal thickening suggestive of pulmonary vascular congestion. Pro-BNP was significantly elevated. She did receive a dose of IV Lasix in the ED and another dose of Lasix IV 60 with good diureses overnight and continues to diurese. Her blood pressure did improve and was in the normotensive ranges and she's given another dose of 20mg PO lasix this am. Cardiology is on consultation and appreciate their recommendations. An echocardiogram has been ordered, pending results currently. Initially she also had elevated troponins likely in the setting of ischemic demand from her acute exacerbation of heart failure. We will repeat another troponin today. Patient was able to bring her own CPAP machine from home and used it last night without any issues. Can continue using her own CPAP machine qpm and during naps. Otherwise, titrate nasal cannula which should keep her sats between 88% and 92%. 2. CAP. The patient did have positive parainfluenza virus on her respiratory panel and did have radiographs showing areas of interstitial and alveolar infiltrates predominantly in the lower bases, left greater than right. She has been afebrile overnight. Her white count has improved. She is on broad spectrum antibiotics currently. We will order another procalcitonin and consider deescalating antibiotics per primary team. 3. Longstanding history of smoking/nicotine dependence and a history of COPD, not suspected to be in acute exacerbation currently. The patient does use Breo Ellipta as well as a rescue inhaler at home. We will continue Advair as well as nebs scheduled and as needed. We will hold off on steroids at this point. She is not wheezing. 4. NICANOR and Hyperkalemia. Her renal function continues to improve. Pt initially had acidosis per ABG and elevated potassium. With the correct of her acidosis, her potassium did normalize by contraction alkalosis. We will continue to monitor with daily BMP and replete electrolytes as needed. 5. JASON on CPAP. The patient did bring in her own CPAP machine and has been using it last night without any issues. Can continue using her own CPAP machine at night and during naps. Otherwise titrate nasal cannula to keep her O2 saturations between 88% and 92%. She should follow up with pulmonary on an outpatient basis in three weeks with her pulmonlogist Dr. Joseph DVT prophylaxis. Heparin. CODE STATUS: FULL. Please do not hesitate to call if any further questions or concerns I, Norah Brunson, have conducted an independent examination and history of the patient and agree with the above plan as detailed by the resident and discussed during rounds. SUKHWINDER
--- NOTE | 2020-09-21 17:48 | IPNPDOC ---
Text Note Date of Service The patient was seen on 09/21/20. NOTE SUBJECTIVE: Patient is currently no longer requiring supplemental oxygen and feels very well. She has no lower extremity edema and has been ambulating around her room without difficulties. She also denies chest pains, cough, and orthopnea. PHYSICAL EXAM: VITAL SIGNS: see below GENERAL APPEARANCE: Well appearing obese female, sitting up at side of bed, NAD HEENT: Atraumatic, normocephalic. Eyes are anicteric. Mucous membranes are pink and moist CARDIOVASCULAR: NSR regular rhythm, no noted murmurs LUNGS: CTAB ABDOMEN: Normoactive sounds, soft, nondistended. No rebound tenderness or guarding. EXTREMITIES: No lower extremity edema, no apparent rashes/petechiae. NEUROLOGICAL: Awake, speech is clear, AOx3 LABORATORY STUDIES: Reviewed, please see below RADIOLOGY STUDIES: No recent finalized Echo per Cardiology as reported over the phone, no new reduction in EF, actually slightly improved EF from prior exam. ASSESSMENT: Ms. Méndez is a 65 year old female with history of COPD in setting of tobacco use disorder and prior COVID-19 infection as well as CHF with prior EF of 20-25% presenting for acute onset of hypercarbic respiratory failure requiring CPAP. PLAN: # Hypoxic and hypercarbic respiratory failure: With respiratory panel demonstrating parainfluenza and BNP markedly elevated, there is concerned for a duel cardiac and infectious process. Initiated steroid burst as well as diuresis which have improved patient's oxygen requirement and will reassess cardiac function through stat echocardiogram which will be obtained today as well as Cardiology consult which is pending as patient has history of heavy alcohol use and could have alcohol induced cardiomyopathy as well as history of COVID-19 which has been demonstrated to cause cardiomyopathy. Meds: Continue nebulizers PRN and and scheduled Advair BID d/c abx Lasix 40mg daily Digoxin load as per Cardiology O2 support as needed strict I/O daily weights Echo pending Consult Cardiology # elevated cTNT: Patient has had stable but elevated cTNT demonstrating heart strain in the setting of parainfluenza and possible heart failure exacerbation. She was seen last night by Cardiology and had echocardiogram read with preliminary report as slightly improved EF from prior, however formal read is pending. Cardiology has also initiated IV Digoxin load with recommendations to transition to oral di goxin in the morning. They will also see patient tomorrow. Meds: Dig load per Cardiology Echo pending Cardiology following # New anemia: Patient has history of mild iron deficiency and on admission had normal H&H however this has dropped since admission with no evidence of blood loss. Patient has no hematochezia or hematuria and has not had recent procedures. Meds: Iron initiated Obtain fecal occult Folate/B12 pending # JASON: CPAP at night on home settings. # NICANOR on CKD: Improved renal function to baseline with diuresis in the setting of obvious fluid overload. DISPO: PCU on tele with transfer to med surg on remote tele DIET: cardiac DVT PROPHY: heparin CONSULTS: Cardiology DISCHARGE: Pending clinical improvement and Cardiology evaluation VS,Fishbone, I+O VS, Fishbone, I+O Laboratory Tests 09/20/20 13:04 09/21/20 05:30 Vital Signs Date Time Temp Pulse Resp B/P (MAP) Pulse Ox O2 Delivery O2 Flow Rate FiO2 09/21/20 04:00 99.6 95 16 104/56 (72) 92 NIPPV (BIPAP/CPAP) 09/20/20 12:00 2.0 09/19/20 08:26 50 I&O- Last 24 Hours up to 6 AM 09/21/20 06:00 Intake Total 1250 ml Output Total 2000 ml Balance -750 ml SHANE BOO MD [facility] Sep 21, 2020 07:22
[2020-09-21] MEDS: IRON POLYSAC (NIFEREX) 150 MG CAP PO SCH (21:33)
[2020-09-22] MEDS: IPRATROPIUM 0.5MG/ALBUTEROL 2.5MG INH SOL UD 3ML (DUONEB) NEB SCH ×3 (02:08→13:57)
[2020-09-22 04:00] VITALS: BP 131/60
[2020-09-22] MEDS: HEPARIN SOD (PORCINE) 5000UNITS/ML 1ML VIAL/SYRINGE SC SCH ×2 (05:27→14:11)
[2020-09-22 05:53] LABS: HEMATOCRIT 32.4 % (36.0-47.0); HEMOGLOBIN 10.9 g/dl (12.0-15.5); MEAN CORPUSCULAR HGB CONC 33.6 g/dl (32.0-36.5); MEAN CORPUSCULAR VOLUME 104.2 fl (80.0-96.0); PLATELET COUNT, AUTOMATED 165 10^3/uL (150-450); RED BLOOD COUNT 3.11 10^6/uL (4.00-5.40); WHITE BLOOD COUNT 7.2 10^3/uL (4.0-10.0)
[2020-09-22 06:08] LABS: CALCIUM LEVEL 8.7 MG/DL (8.8-10.2); CREATININE FOR GFR 1.33 MG/DL (0.55-1.30); GLOMERULAR FILTRATION RATE 42.5 (>45); POTASSIUM SERUM 3.9 MEQ/L (3.5-5.1)
[2020-09-22 08:00] VITALS: BP 124/61
[2020-09-22] MEDS ORDERED: FUROSEMIDE 40 MG TAB PO SCH (09:00)
[2020-09-22] MEDS: IRON POLYSAC (NIFEREX) 150 MG CAP PO SCH (09:18)
[2020-09-22] MEDS: guaiFENesin ER 600 MG TAB PO SCH (09:18)
--- NOTE | 2020-09-22 09:20 | ECHO ---
ECHOCARDIOGRAM DATE OF PROCEDURE: 09/20/2020 Age: 65 Gender: Female Height: 157 cm Weight: 96 kg REFERRING PHYSICIAN: Norah Brunson M.D. INDICATION: Heart Failure, unspecified. MEASUREMENTS: 2D Measurements: Aortic root 3.4 cm Left atrium 4.1 cm Interventricular septum 0.98 cm Posterior wall 1.11 cm Left ventricle diastole 4.1 cm Left atrial volume index 29 Inferior vena cava 2.1 cm (more than 50% respiratory variation. Doppler Measurements: No aortic stenosis No aortic regurgitation Aortic valve velocity 131 cm/sec LVOT velocity 92.0 cm/sec LVOT VTI 16.3 cm No mitral regurgitation No mitral stenosis Very mild tricuspid regurgitation Estimated right ventricle systolic pressure 34-39 mmHg Estimated right atrial pressure of 5-10 mmHg No pulmonic regurgitation Pulmonary artery acceleration time 92 msec MITRAL ANNULAR TISSUE DOPPLER: E prime septal 7.7 cm/sec E prime lateral 5.2 cm/sec DESCRIPTION: Rhythm was sinus tachycardia. Image quality was good. This was a 2D, M-mode, color flow Doppler and pulsed wave Doppler examination and included a mitral annular tissue Doppler. CONCLUSIONS: 1. Normal left ventricle internal dimensions and wall thickness. Normal regional left ventricular (LV) wall motion and wall thickening. Grade 1 LV diastolic dysfunction. Complete fusion of the early rapid filling phase with the atrial filling phase. 2. Visual appearance of mild right ventricle dilatation. Partial flattening of the ventricular septum during systole in keeping with pressure overload of the right ventricle, suggestive of mild elevation of pulmonary free systolic pressure and estimated right ventricle systolic pressure. 3. Normal central venous pressure (CVP) (5-10 mmHg). 4. No pericardial effusion. 5. Mild left atrial dilatation by left atrial volume index. 6. Mild aortic valve sclerosis of A3-cuspid aortic valve. No aortic stenosis. 7. Otherwise normal-appearing echocardiogram Doppler findings.
[2020-09-22] MEDS: ADVAIR HFA 230/21MCG INHALER INH SCH (09:23)
[2020-09-22 11:35] LABS: CK-MB VALUE MASS 3.4 NG/ML (<3.6); MB/CK RELATIVE INDEX 1.99 (< OR =4); TROPONIN I 0.13 NG/ML (< 0.10)
[2020-09-22] MEDS ORDERED: MUCI600T31 PO (15:55)
[2020-09-22] MEDS ORDERED: ALBU8.5H INH (17:15)
--- NOTE | 2020-09-22 17:58 | DS.PDOC ---
Discharge Summary General Date of Admission Sep 19, 2020 at 12:13 Date of Discharge 09/22/2020 Discharge Summary PRIMARY CARE PHYSICIAN: Dr. Swanson ATTENDING AT TIME OF DISCHARGE: Dr. Francois Kumar, DO DISCHARGE DIAGNOS(E)S: Parainfluenza virus pneumonia (community-acquired) Hypoxic and hypercarbic respiratory failure Acute kidney injury Hyperkalemia Hypertension Tachycardia Elevated troponin Inverted T waves on EKG Macrocytic anemia Obstructive sleep apnea (on CPAP) Acute on chronic kidney disease Congestive heart failure with combined diastolic and systolic dysfunction and reduced ejection fraction. Smoker/nicotine dependence COPD HPI & HOSPITAL COURSE: Patient presented to the hospital with acute shortness of breath that woke her up out of sleep. Respiratory panel demonstrated parainfluenza virus, however she was treated with a short course of antibiotics given the concern that this m ay be a dual viral and bacterial process, however this was discontinued a few days later. She was also diuresed given her significant history of congestive heart failure with combined diastolic and systolic dysfunction. Repeat echocardiogram was performed during her stay here, but it did not specify her ejection fraction, therefore it is unknown if it is any different from previous, but it is implied that perhaps her EF is slightly improved. Prior indicated EF of approximately 20-25%. She did have some mildly elevated troponins, however they trended down and the remainder of her cardiac markers were negative. Interestingly enough approximately 24 hours prior to discharge she did develop inverted T waves on some of her anterior lateral leads, but repeat cardiac markers were even better than they had been previously. It is suspected that this is likely due to strain on the heart from her pulmonary issues. She did develop acute kidney injury while inpatient, this is trending down cielo zamzam, and on this the day of discharge she is almost back to normal, but has been showing steady improvement since admission, and it is anticipated that her GFR will be back to normal tomorrow, this has not been specifically treated for a few days. Electrolyte abnormalities have now resolved today. Clinically, the patient is feeling quite well, she still does have some mild productive cough, but otherwise has no complaints at this time. She has been saturating well on room air throughout the day for a few days now. And certainly seems safe to go home at this time. PHYSICAL EXAMINATION ON DISCHARGE: GENERAL: Awake, alert, oriented x3. She is in no acute distress. CARDIOVASCULAR EXAMINATION: Regular rate and rhythm, with no rubs, gallops, or murmur. RESPIRATORY EXAMINATION: Clear to auscultation bilaterally with no wheezes, rales, or rhonchi. ABDOMINAL EXAMINATION: Soft, nontender, nondistended. Bowel sounds present. EXTREMITIES: No clubbing or edema noted. 2+ pulses in the radial bilaterally. DISPOSITION: Home DISCHARGE INSTRUCTIONS: Follow-up with primary care provider within the next 7-10 days. Recommend low- salt diet. Activity as tolerated. If symptoms return, or if you experience worsening of your symptoms, please call your doctor or return to the emergency department. ITEMS THAT NEED OUTPATIENT FOLLOWUP: Strongly suggest repeating EKG in the office, and if inverted T waves are persistent, would likely require treadmill test or nuclear stress test. May need clarification of echocardiogram reading, or repeat echocardiogram as well.. Also would recommend a repeat BMP to reevaluate renal function next week. Vital Signs/I&Os Vital Signs Date Time Temp Pulse Resp B/P (MAP) Pulse Ox O2 Delivery O2 Flow Rate FiO2 09/22/20 16:00 97.3 91 18 98 Room Air 09/22/20 08:00 124/61 (82) 2.0 09/19/20 08:26 50 I&O- Last 24 Hours up to 6 AM 09/22/20 06:00 Intake Total 1280 ml Output Total 3900 ml Balance -2620 ml Laboratory Data Labs 24H Laboratory Tests 2 09/22/20 05:27: Nucleated Red Blood Cells % (auto) 0.0, Anion Gap 6L, Glomerular Filtration Rate 42.5L, Calcium Level 8.7L 09/22/20 10:48: Total Creatine Kinase 171, Creatine Kinase MB 3.4, Creatine Kinase MB Relative Index 1.99, Troponin I 0.13#H CBC/BMP Laboratory Tests 09/22/20 05:27 Microbiology Microbiology 09/22/20 Stool Occult Blood (MELLISA) - Final, Complete 09/21/20 Gram Stain - Final, Resulted 09/21/20 Sputum Culture, Resulted Pending 09/19/20 Respiratory Virus Panel (PCR) ([facility]LL[facility]) - Final, Complete Parainfluenza 3 (Piv3) 09/19/20 Blood Culture - Preliminary, Resulted No Growth after 72 hours. All specime... 09/19/20 Blood Culture - Preliminary, Resulted No Growth after 72 hours. All specime... Discharge Medications Scheduled Fluticasone/Vilanterol (Breo Ellipta 100-25 Mcg INH) 1 Inh Inh, 1 PUFF INH DAILY, (Reported) Furosemide (Furosemide) 40 Mg Tablet, 40 MG PO DAILY, (Reported) Guaifenesin (Mucinex) 600 Mg Tab.er.12h, 600 MG PO BID Lisinopril (Lisinopril) 20 Mg Tablet, 20 MG PO DAILY, (Reported) Multivitamins (Thera M Plus Tablet) 1 Each Tablet, 1 TAB PO DAILY, (Reported) Scheduled PRN Albuterol Sulfate (Albuterol Sulfate Hfa) 8.5 Gm Hfa.aer.ad, 2 PUFFS INH Q4HP PRN for SHORTNESS OF BREATH Allergies Coded Allergies: No Known Allergies (Verified , 08/31/20) FRANCOIS KUMAR DO Sep 22, 2020 17:58
--- NOTE | 2020-09-23 18:55 | ECGEPIP ---
[facility] Test Date: 2020-09-22 Pat Name: PAYAM TIJERINA Department: Room: [place] [address] Gender: Female [employer]: SUMA : [id number] Requested By: MARKO KUMAR Order Number: [id number] Reading MD: Ryley Carr Measurements Intervals [place] Rate: 87 P: 48 MS: 166 QRS: -12 QRSD: 88 T: 140 QT: 376 QTc: 452 Interpretive Statements Normal sinus rhythm with sinus arrhythmia ST & T wave abnormality, consider anterolateral ischemia (NEW) Possible prior inferior wall infarct Poor R wave progression Compared to prior tracings (3) in the system Electronically Signed on 09-23-2020 18:55:20 EDT by Ryley Carr
--- NOTE | 2020-09-25 10:22 | CR ---
CONSULTATION DATE: 09/20/2020 REASON FOR CONSULTATION: Tachycardia. REFERRING PHYSICIAN: Dr. Gr HISTORY OF PRESENT ILLNESS: 65-year-old woman with a history of cardiomyopathy, hypertension, hyperlipidemia, COPD and obstructive sleep apnea, came to the ER and was admitted on 09/20/2020 with shortness of breath. She was found to be positive for parainfluenza and upon arrival to the ER, she was hypoxemic. Earlier this year, in the month of April,, she was diagnosed and treated for COVID-19. Because of the persistent sinus tachycardia, cardiac evaluation was called. When I saw Mrs. Méndez on 09/20/2020 in the evening, she was sitting in her bed in no acute distress at rest and she denies any chest pain. She said that her shortness of breath has improved since in the hospital. She continued to have sinus tachycardia at the heart rate in the 110-120 beats per minute. She has been coughing and she stated she thinks this has improved. She denies any chills. She denies any nausea, vomiting, diarrhea, melena or hematemesis. She has no focal manifestation. She denies any active or swelling of joints. PAST MEDICAL HISTORY: Positive as mentioned above, positive for severe left ventricular systolic dysfunction and at one point was on Entresto. She had a cardiac catheterization that revealed no restrictive CAD and later on, her Entresto was discontinued. The patient could not elaborate on that. She is being treated for hypertension. She also has a history of hyperlipidemia, constrictive lung disease and obstructive sleep apnea for which she has been on CPAP machine at night. There is no known history of atrial fibrillation/flutter, TIA/CVA, sudden cardiac . She does have a history of arthritis. There is no history of thyroid disorders. She has an echocardiogram done earlier in the afternoon, result is pending. PAST SURGICAL HISTORY: Positive for bilateral hip surgery and right knee surgery, otherwise unremarkable. FAMILY HISTORY: Noncontributory. SOCIAL HISTORY: The patient lives at home with her family and she is a former smoker. She drinks almost daily. There is no report of illicit drugs. MEDICATIONS AT HOME: 1. Lisinopril 20 mg p.o. daily. 2. Lasix 40 mg p.o. daily. 3. Breo Ellipta. 4. Multivitamins. FAMILY HISTORY: Noncontributory for heart disease. Her mother is with dementia and her father had prostate cancer. PHYSICAL EXAMINATION: Patient is alert and oriented, in no acute distress at rest. Her vital signs when I saw her revealed a blood pressure of 117/64 with a pulse of 107, respirations 20 and her maximum temperature was 99.9 degrees Fahrenheit. Oxygen saturation was 95% on room air. Examination of the head: Normocephalic, atraumatic. Neck is supple and I could not appreciate any JVD while sleeping on the bed. Lungs do not reveal any wheezing or crackles. Heart examination reveals a normal S-1 and S-2 without gallops. I could not appreciate any murmurs. The PMI is not displaced. There is no rub. Abdomen is nontender. Extremities reveal trace to +1 bilateral lower leg edema. Neurologic examination is negative for focal deficit. LABORATORY DATA: CBC on 09/19/2020 revealed a WBC of 7.9, hemoglobin 13.5, hematocrit 41.9 and platelets 237,000. On 09/20/2020, CBC revealed a WBC of 14.9 with a hemoglobin of 10.6, hematocrit 31.4 and platelets 195,000. BMP on 09/19/2020 revealed a sodium of 136, potassium 4.2, chloride 108, CO2 23, BUN 53, creatinine 2.38, fasting glucose 163. Serum lactic acid initially was 2.4, then increased to 2.5. Liver enzymes revealed a total bilirubin of 0.3, AST 18, ALT 24, alkaline phosphatase 25, total protein 8.6, albumin 4.2. Serum troponin was 0.02. BMP on 09/19/2020 revealed a sodium of 137, potassium 5.5, chloride 102, CO2 26, BUN 56, serum creatinine 2.26, EFR 23.0 and fasting glucose 142 with a calcium of 8.9. Serum troponin increased up to 0.13 and on 09/20/2020, it was 0.43. ProBNP was 29,629. ABG on admission revealed a pH of 7.26 with a pO2 of 339, pCO2 60.2 upon arrival and upon repeating it about four hours later, pH was 7.38 with a pO2 of 97, pCO2 41.5, bicarbonate 24.6 and oxygen saturation was 97%. MELLISA was not detected. [id number] was negative. Positive for parainfluenza 3. Stool for occult blood was negative. Blood culture revealed no growth. EKG on admission revealed sinus tachycardia at 138 beats per minute, isolated PVCs, poor R wave progression and nonspecific ST-T abnormalities. Artifacts noted on the baseline. Chest x-ray on 09/19/2020 revealed pulmonary vascular congestion and cardiomegaly. Chest CT on admission, 09/19/2020 revealed interstitial infiltrates as well as pattern suggestive of interstitial edema, left greater than the right. CT of the neck on 09/19/2020 was within normal limits. IMPRESSION: 1. A 65-year-old woman with a history of cardiomyopathy presented to the hospital with shortness of breath that seems to be sudden and she was diagnosed with parainfluenza. She presented with hypoxemic respiratory failure. She has been tachycardic and heart rate continued to be elevated. Blood pressure seems to be stable but low. She appears to be stable when I saw her and she was started on digoxin, loading dose. She also was given a dose of IV Lasix and we will continue with that as needed if her blood pressure continues to be stable. She had an echocardiogram done and it will be reviewed, then further recommendation will be given. The case was discussed with hospitalist anibal on 09/21/2020 and patient will be seen again after reviewing the echocardiogram and after the loading dose of the Digoxin. She also may be seen sooner if needed. 2. Status post respiratory failure, hypoxemic hypercapnic respiratory failure. Resolved. 3. History of left ventricular systolic dysfunction, severe. The patient had an echocardiogram as mentioned above it will be reviewed. She was on Entresto and this was discontinued. It seemed that she had had a cardiac catheterization done, no obstructive CAD. She does have some underlying abnormal serum troponin, probably related to her hypoxemia and her tachycardia. I will try to get a copy of the cardiac catheterization. 4. History of hypertension for which she has been on lisinopril but now on hold because of low blood pressure and she also has underlying CKD. 5. History of hyperlipidemia, on diet. 6. COPD and no wheezing noted on examination. 7. Obstructive sleep apnea, on CPAP. 8. Recent history of COVID-19 infection in April of 2020. It was a pleasure to participate in the care of . Dinorah Méndez for her underlying cardiac condition. I will continue to follow her while in the hospital. Please do not hesitate to call if any questions. SUKHWINDER
== END 2020-09-22 17:19 | disposition home or self-care (01) | DRG 193 ==
LOC: M ED 06:48 → M ED INP 12:13 → M PCU 17:20
PROVIDERS: ADMIT Student in an Organized Health Care Education/Training Program; ATTEND Neuromusculoskeletal Medicine & OMM
DX: J12.2 Parainfluenza virus pneumonia (principal); J96.01 Acute respiratory failure with hypoxia; J96.02 Acute respiratory failure with hypercapnia; I42.9 Cardiomyopathy, unspecified; I13.0 Hypertensive heart and chronic kidney disease with heart failure and stage 1 through stage 4 chronic kidney disease, or unspecified chronic kidney disease; I50.42 Chronic combined systolic (congestive) and diastolic (congestive) heart failure; N17.9 Acute kidney failure, unspecified; J44.9 Chronic obstructive pulmonary disease, unspecified; E78.5 Hyperlipidemia, unspecified; N18.9 Chronic kidney disease, unspecified; E87.5 Hyperkalemia; D50.9 Iron deficiency anemia, unspecified; G47.33 Obstructive sleep apnea (adult) (pediatric); Z87.891 Personal history of nicotine dependence; Z79.899 Other long term (current) drug therapy; Z86.16 Personal history of COVID-19

== ENCOUNTER → 2020-09-27 | Outpatient (REF) | payer MEDICARE ==
[~2020-09-27] MED LIST changes: +ALBU8.5H INH; +MUCI600T31 PO
[2020-09-27 12:50] LABS: PERCENT SATURATION 22.6 % (13.2-45.0)
== END ==
LOC: M LAB REF 11:28
PROVIDERS: ATTEND Internal Medicine
DX: D64.9 Anemia, unspecified (principal); J12.2 Parainfluenza virus pneumonia

== ENCOUNTER → 2022-03-20 | Outpatient (REF) | payer MEDICARE ==
[2022-03-21 13:50] LABS: FOLATE 4.3 NG/ML (>5.4)
== END ==
LOC: M LAB REF 12:07
PROVIDERS: ATTEND Internal Medicine
DX: D64.9 Anemia, unspecified (principal)

== ENCOUNTER → 2022-05-22 | Outpatient (REF) | payer MEDICARE ==
[2022-05-24 17:07] LABS: ENDOMYSIAL ABY IgA Negative (Negative); TISSUE TRANSGLUTAMINASE IgA 2 U/mL (0-3)
== END ==
LOC: M LAB REF 16:39
PROVIDERS: ATTEND Internal Medicine
DX: R19.7 Diarrhea, unspecified (principal)

== ENCOUNTER → 2022-09-25 | Outpatient (REF) | payer MEDICARE | LOC: M LAB REF 12:42 | PROVIDERS: ATTEND Internal Medicine | DX: E27.8 Other specified disorders of adrenal gland (principal) ==